=== PATIENT | female | born 1955 | race Caucasian/White ===

== ENCOUNTER 2018-08-12 16:04 | Inpatient (IN) | payer MEDICAID | END 2018-08-15 18:10 | disposition home or self-care (01) | LOC: ER 16:04 → ED HOLD 23:05 → ORTHO 4S 08-13 16:20 ==

== ENCOUNTER → 2018-08-18 | Emergency (ER) | payer MEDICAID ==
[~2018-08-18] VITALS: Ht 172.7 cm; Wt 43.6 kg
[~2018-08-18] MED LIST: ALBU18HF2 INH; ALBU2.5V13 NEB; AMYL1CAP52 PO; AMYL1CAP53 PO; ASPI-1071 PO; ATOR20TA PO; ATOR20TA66 PO; BUDE10.2 INH; BUPR75TA12 PO; CHOL100017 PO; DIPH25CA83 PO; GABA-534 PO; GUAI600T45 PO; HYDR-3686 PO; LORA10TA7 PO; METO-539 PO; NAPR-1115 PO; OMEP40CA37 PO; SERT50TA PO; TIOT4MIS3 INH; TRAM50TA2 PO; gabapentin 400mg capsule PO SCH; traMADol 50MG tablet PO ONE
[2018-08-18 09:45] VITALS: BP 123/74
--- NOTE | 2018-08-18 10:22 | NUR ---
Spoke with Sandra, Interim home health will be coming to patient at [facility] Bernadette will bring patient some oxygen She called [facility], not currently up and running. But she stated that they hope to be running around [address] del toro and special agent in charge mary.
--- NOTE | 2018-08-18 20:55 | NUR ---
GIVEN SACK LUNCH AND WATER
== END | disposition home or self-care (01) ==
LOC: ER 05:05
DX: R09.02 Hypoxemia (principal); J44.9 Chronic obstructive pulmonary disease, unspecified; G89.29 Other chronic pain; M10.9 Gout, unspecified; M06.9 Rheumatoid arthritis, unspecified; F12.90 Cannabis use, unspecified, uncomplicated; Z00.00 Encounter for general adult medical examination without abnormal findings; Z99.81 Dependence on supplemental oxygen; Z56.0 Unemployment, unspecified; Z79.82 Long term (current) use of aspirin; Z79.899 Other long term (current) drug therapy; Z88.4 Allergy status to anesthetic agent; Z90.89 Acquired absence of other organs; Z98.890 Other specified postprocedural states
CPT/HCPCS: 99284

== ENCOUNTER 2018-08-20 15:14 | Inpatient (IN) | payer MEDICAID ==
[~2018-08-20] VITALS: Ht 172.7 cm; Wt 45.0 kg
[~2018-08-20 15:14] MED LIST changes: -ATOR20TA PO; -gabapentin 400mg capsule PO SCH; -traMADol 50MG tablet PO ONE
[2018-08-20 19:26] LABS: BASOPHILS % (AUTO) 0.4 % (0-1); EOSINOPHILS # (AUTO) 0.1 X10'3 (0-0.9); HEMATOCRIT 40.1 % (35.0-45.0); HEMOGLOBIN 12.3 g/dl (12.0-16.0); LYMPHOCYTES # (AUTO) 0.7 X10'3 (1.1-4.8); LYMPHOCYTES % (AUTO) 8.6 % (21-51); MEAN CORPUSCULAR HEMOGLOBIN 30.5 PG (27.0-31.0); MEAN CORPUSCULAR HGB CONC 30.8 g/dL (33.0-36.5); MEAN CORPUSCULAR VOLUME 99.2 FL (78-98); MEAN PLATELET VOLUME 8.4 FL (7.4-10.4); MONOCYTES # (AUTO) 0.8 X10'3 (0-0.9); MONOCYTES % (AUTO) 10.4 % (2-12); NEUTROPHILS # (AUTO) 6.3 X10'3 (1.8-7.7); NEUTROPHILS % (AUTO) 79.6 % (42-75); PLATELET COUNT 253 X10'3 (140-440); RED BLOOD COUNT 4.04 X10'6 (4.20-5.60); RED CELL DISTRIBUTION WIDTH 12.6 % (11.5-14.5); WHITE BLOOD COUNT 7.9 X10'3 (4.5-11.0)
[2018-08-20 19:38] LABS: ALANINE AMINOTRANSFERASE 21 U/L (12-78); ALBUMIN 3.1 G/DL (3.4-5.0); ALBUMIN/GLOBULIN RATIO 0.9 (1.1-1.5); ALKALINE PHOSPHATASE 94 IU/L (46-116); ASPARTATE AMINO TRANSFERASE 18 U/L (10-37); BILIRUBIN,TOTAL 0.2 MG/DL (0.1-1.0); BLOOD UREA NITROGEN 12 MG/DL (7-18); BUN/CREATININE RATIO 26.7 (6.6-38.0); CALCIUM 8.8 MG/DL (8.5-10.1); CHLORIDE 96 MMOL/L (99-107); CREATININE 0.45 MG/DL (0.40-0.90); GLUCOSE 154 MG/DL (70-104); POTASSIUM 3.2 MMOL/L (3.5-5.1); SODIUM 142 MMOL/L (135-145); TOTAL PROTEIN 6.6 G/DL (6.4-8.2); TROPONIN I < 0.04 NG/ML (0.0-0.05); eGFR > 90 ML/MIN
[2018-08-20 19:51] LABS: ANION GAP 1 (8-16)
[2018-08-20 19:53] LABS: TOTAL CARBON DIOXIDE 45.2 MMOL/L (24-32)
[2018-08-20] MEDS ORDERED: ipratropium/albuterol 3ml nebule NEB ONE (20:00)
[2018-08-20 21:36] LABS: ABG BASE EXCESS 20.2 mmol/L (-2.0-3.0); ABG HCO3 51.1 mmol/L (22.0-26.0); ABG OXYGEN SATURATION 82.9 % (95-98); ABG PCO2 (T) 94.1 mmHg (32.0-45.0); ABG PH (T) 7.351 (7.350-7.450); ABG PO2 (T) 47.1 mmHg (83-108); ALLEN'S TEST Positive; FLOW 1 L/min; FMetHb 0.2 % (0.3-1.12); FO2Hb 81.9 % (94-100); PATIENT TEMPERATURE 36.6; RESPIRATORY RATE (OBSERVED) 16 b/min; TOTAL HEMOGLOBIN 13.3 G/dl (12.0-16.0)
[2018-08-20] MEDS ORDERED: ATOR20TA PO (23:06)
[2018-08-20] MEDS ORDERED: ASPI-1071 PO (23:06)
[2018-08-21 00:06] LABS: ABG BASE EXCESS 17.4 mmol/L (-2.0-3.0); ABG HCO3 45.3 mmol/L (22.0-26.0); ABG OXYGEN SATURATION 94.2 % (95-98); ABG PCO2 (T) 70.1 mmHg (32.0-45.0); ABG PO2 (T) 70.7 mmHg (83-108); ALLEN'S TEST Positive; FCOHb 0.9 % (0.5-1.5); FMetHb 0.1 % (0.3-1.12); FO2Hb 93.3 % (94-100); MINUTE VOLUME 14 L/min; PATIENT TEMPERATURE 37.3; RESPIRATORY RATE 20 b/min; RESPIRATORY RATE (OBSERVED) 24 b/min; TOTAL HEMOGLOBIN 13.5 G/dl (12.0-16.0)
[2018-08-21] MEDS ORDERED: acetaminophen 325mg tablet PO PRN ×2 (00:15→03:55)
[2018-08-21] MEDS ORDERED: ondansetron/PF 4mg/2ml inj IV PRN (00:15)
[2018-08-21] MEDS ORDERED: mag hydrox/Alum hydrox/simeth 30ml oral suspension PO PRN (00:15)
[2018-08-21] MEDS ORDERED: magnesium hydroxide 30ml (MOM) UD suspension PO PRN (00:15)
[2018-08-21] MEDS ORDERED: guaiFENesin ER 600mg tablet PO PRN (00:20)
[2018-08-21] MEDS ORDERED: albuterol 2.5 MG/3 ML nebule NEB PRN ×2 (00:20)
[2018-08-21] MEDS ORDERED: ipratropium 0.5 MG/2.5ML nebule IH SCH (02:00)
[2018-08-21] MEDS ORDERED: albuterol 2.5 MG/3 ML nebule NEB SCH (03:00)
[2018-08-21] MEDS: ipratropium/albuterol 3ml nebule NEB SCH ×4 (04:13→20:37)
[2018-08-21] MEDS ORDERED: non-formulary drug (Budesonide/Formoterol Fumarate (Symbicort 160-4.5 Mcg Inhaler) 2 PUFFS INH SCH (08:00)
[2018-08-21] MEDS ORDERED: non-formulary drug (Tiotropium Br/Olodaterol HCl (Stiolto Respimat Inhal Spray) 2 PUFFS) INH SCH (08:00)
[2018-08-21] MEDS: LIPASE/PROTEASE/AMYLASE 4,200 unit CAPSULE.DR PO SCH ×3 (08:42→19:43)
[2018-08-21] MEDS: aspirin 81mg tablet.DR PO SCH (08:42)
[2018-08-21] MEDS: pantoprazole 40mg Tablet.DR PO SCH (08:43)
[2018-08-21] MEDS: buPROPion 75mg tablet PO SCH (08:43)
[2018-08-21] MEDS: metoprolol succinate 25mg (24-HOUR) SR. Tablet PO SCH (08:44)
[2018-08-21] MEDS: heparin, porcine 5000 units/ml vial SQ SCH ×2 (08:45→19:43)
[2018-08-21] MEDS: budesonide 0.5mg/2ml UD nebule IH SCH ×2 (10:23→20:37)
[2018-08-21] MEDS ORDERED: naproxen sodium 220mg tablet PO PRN (16:20)
[2018-08-21] MEDS ORDERED: LIPASE PO SCH (18:00)
[2018-08-21] MEDS ORDERED: AMYLASE PO SCH (18:00)
[2018-08-21] MEDS ORDERED: PROTEASE PO SCH (18:00)
[2018-08-21] MEDS: traMADol 50MG tablet PO PRN (19:42)
[2018-08-21] MEDS: atorvastatin 20mg tablet PO SCH (21:10)
[2018-08-21] MEDS: sertraline 50mg tablet PO SCH (21:10)
[2018-08-21] MEDS: diphenhydrAMINE 25mg capsule PO PRN (21:11)
[2018-08-21] MEDS ORDERED: nicotine prolacrilex 4mg gum BC PRN (22:50)
[2018-08-21 23:00] VITALS: BP 108/81
[2018-08-21] MEDS ORDERED: NICOTINE POLACRILEX 2 MG LOZENGE MM PRN (23:12)
[2018-08-22] MEDS: gabapentin 400mg capsule PO SCH ×4 (00:12→23:25)
[2018-08-22] MEDS: traMADol 50MG tablet PO PRN ×2 (00:15→15:26)
[2018-08-22] MEDS: nicotine prolacrilex 2mg gum BC PRN ×2 (00:40→09:02)
[2018-08-22] MEDS: ipratropium/albuterol 3ml nebule NEB SCH ×4 (02:40→20:00)
[2018-08-22 03:00] VITALS: BP 137/80
[2018-08-22] MEDS: hydrOXYzine 25 MG tablet PO PRN ×2 (03:15→21:57)
[2018-08-22 06:00] VITALS: BP 118/77
[2018-08-22 07:03] LABS: BASOPHILS % (AUTO) 0.3 % (0-1); EOSINOPHILS % (AUTO) 0.5 % (0-6); HEMATOCRIT 38.1 % (35.0-45.0); HEMOGLOBIN 12.4 g/dl (12.0-16.0); LYMPHOCYTES # (AUTO) 1.4 X10'3 (1.1-4.8); LYMPHOCYTES % (AUTO) 16.5 % (21-51); MEAN CORPUSCULAR HEMOGLOBIN 31.7 PG (27.0-31.0); MEAN CORPUSCULAR HGB CONC 32.4 g/dL (33.0-36.5); MEAN CORPUSCULAR VOLUME 97.9 FL (78-98); MONOCYTES # (AUTO) 0.8 X10'3 (0-0.9); MONOCYTES % (AUTO) 9.1 % (2-12); NEUTROPHILS # (AUTO) 6.4 X10'3 (1.8-7.7); NEUTROPHILS % (AUTO) 73.6 % (42-75); PLATELET COUNT 291 X10'3 (140-440); RED CELL DISTRIBUTION WIDTH 12.3 % (11.5-14.5); WHITE BLOOD COUNT 8.6 X10'3 (4.5-11.0)
[2018-08-22 07:11] LABS: ALANINE AMINOTRANSFERASE 16 U/L (12-78); ALBUMIN 2.8 G/DL (3.4-5.0); ALBUMIN/GLOBULIN RATIO 0.8 (1.1-1.5); ALKALINE PHOSPHATASE 88 IU/L (46-116); ANION GAP 3 (8-16); ASPARTATE AMINO TRANSFERASE 15 U/L (10-37); BILIRUBIN,TOTAL 0.3 MG/DL (0.1-1.0); BLOOD UREA NITROGEN 14 MG/DL (7-18); BUN/CREATININE RATIO 29.2 (6.6-38.0); CALCIUM 8.8 MG/DL (8.5-10.1); CHLORIDE 97 MMOL/L (99-107); CREATININE 0.48 MG/DL (0.40-0.90); GLUCOSE 105 MG/DL (70-104); SODIUM 143 MMOL/L (135-145); TOTAL PROTEIN 6.2 G/DL (6.4-8.2); eGFR > 90 ML/MIN
[2018-08-22 07:15] LABS: POTASSIUM 2.9 MMOL/L (3.5-5.1); TOTAL CARBON DIOXIDE 42.8 MMOL/L (24-32)
--- NOTE | 2018-08-22 07:43 | NUR ---
Paged Dr. Aragon: PAGER ID: [phone] MESSAGE: Clara BLACKWOOD [phone]. RE: Gloria Sarkar 3028B. Critical Labs: Potasssium 2.9. CO2 42.8. Thank you.
[2018-08-22] MEDS: budesonide 0.5mg/2ml UD nebule IH SCH ×2 (08:00→20:01)
[2018-08-22] MEDS: LIPASE/PROTEASE/AMYLASE 4,200 unit CAPSULE.DR PO SCH ×3 (08:57→19:27)
[2018-08-22] MEDS: aspirin 81mg tablet.DR PO SCH (08:58)
[2018-08-22] MEDS: buPROPion 75mg tablet PO SCH (08:58)
[2018-08-22] MEDS: vitamin D (cholecalciferol) 1,000 unit tablet PO SCH (08:58)
[2018-08-22] MEDS: loratadine 10mg tablet PO SCH (08:59)
[2018-08-22] MEDS: pantoprazole 40mg Tablet.DR PO SCH (08:59)
[2018-08-22] MEDS: metoprolol succinate 25mg (24-HOUR) SR. Tablet PO SCH (09:01)
[2018-08-22] MEDS: heparin, porcine 5000 units/ml vial SQ SCH ×2 (09:03→19:28)
[2018-08-22] MEDS ORDERED: potassium Cl 40MEQ/NS 500ml 500 ML IV PRN ×2 (10:45)
[2018-08-22] MEDS ORDERED: potassium Cl 20 mEq SR tablet PO PRN (10:45)
[2018-08-22 11:00] VITALS: BP 125/78
[2018-08-22] MEDS: K and/or MAG REPLACEMENT MC SCH (11:14)
[2018-08-22] MEDS: potassium Cl 20 mEq SR tablet PO PRN ×3 (11:14→20:34)
[2018-08-22 15:00] VITALS: BP 100/57
--- NOTE | 2018-08-22 18:29 | NUR ---
Patient in room PCU 3028. I have received report from murphy trevizo and had the opportunity to ask questions and assume patient care.
[2018-08-22 19:00] VITALS: BP 114/66
[2018-08-22] MEDS ORDERED: acetaminophen 325mg tablet PO PRN ×2 (20:19→20:20)
[2018-08-22] MEDS: atorvastatin 20mg tablet PO SCH (20:34)
[2018-08-22] MEDS: diphenhydrAMINE 25mg capsule PO PRN (20:35)
[2018-08-22] MEDS: sertraline 50mg tablet PO SCH (20:35)
[2018-08-22 23:00] VITALS: BP 118/69
[2018-08-23] MEDS: ipratropium/albuterol 3ml nebule NEB SCH ×4 (02:27→20:56)
[2018-08-23 03:00] VITALS: BP 93/63
[2018-08-23 05:29] LABS: BASOPHILS # (AUTO) 0.1 X10'3 (0-0.2); BASOPHILS % (AUTO) 1.1 % (0-1); EOSINOPHILS # (AUTO) 0.1 X10'3 (0-0.9); EOSINOPHILS % (AUTO) 1.5 % (0-6); HEMATOCRIT 38.7 % (35.0-45.0); HEMOGLOBIN 12.6 g/dl (12.0-16.0); LYMPHOCYTES # (AUTO) 1.7 X10'3 (1.1-4.8); LYMPHOCYTES % (AUTO) 23.2 % (21-51); MEAN CORPUSCULAR HEMOGLOBIN 32.2 PG (27.0-31.0); MEAN CORPUSCULAR HGB CONC 32.5 g/dL (33.0-36.5); MEAN PLATELET VOLUME 8.3 FL (7.4-10.4); MONOCYTES # (AUTO) 0.7 X10'3 (0-0.9); MONOCYTES % (AUTO) 9.6 % (2-12); NEUTROPHILS # (AUTO) 4.8 X10'3 (1.8-7.7); NEUTROPHILS % (AUTO) 64.6 % (42-75); PLATELET COUNT 293 X10'3 (140-440); RED BLOOD COUNT 3.91 X10'6 (4.20-5.60); RED CELL DISTRIBUTION WIDTH 12.9 % (11.5-14.5); WHITE BLOOD COUNT 7.4 X10'3 (4.5-11.0)
[2018-08-23 05:31] LABS: ALANINE AMINOTRANSFERASE 17 U/L (12-78); ALBUMIN 2.8 G/DL (3.4-5.0); ALBUMIN/GLOBULIN RATIO 0.8 (1.1-1.5); ALKALINE PHOSPHATASE 89 IU/L (46-116); ANION GAP 4 (8-16); ASPARTATE AMINO TRANSFERASE 18 U/L (10-37); BILIRUBIN,TOTAL 0.2 MG/DL (0.1-1.0); BLOOD UREA NITROGEN 16 MG/DL (7-18); CALCIUM 8.9 MG/DL (8.5-10.1); CHLORIDE 103 MMOL/L (99-107); CREATININE 0.47 MG/DL (0.40-0.90); GLUCOSE 105 MG/DL (70-104); POTASSIUM 4.8 MMOL/L (3.5-5.1); SODIUM 144 MMOL/L (135-145); TOTAL CARBON DIOXIDE 37.5 MMOL/L (24-32); TOTAL PROTEIN 6.4 G/DL (6.4-8.2); eGFR > 90 ML/MIN
[2018-08-23 06:00] VITALS: BP 125/72
--- NOTE | 2018-08-23 06:19 | NUR ---
Problems reprioritized. Patient report given, questions answered & plan of care reviewed with BRANDYN NINO. PATIENT AWAKE IN NO DISTRESS. V/S BEING TAKEN
--- NOTE | 2018-08-23 06:30 | NUR ---
Patient in room PCU 3028. I have received report from Kirti NINO and had the opportunity to ask questions and assume patient care.
[2018-08-23] MEDS: budesonide 0.5mg/2ml UD nebule IH SCH ×2 (07:41→20:56)
[2018-08-23] MEDS: K and/or MAG REPLACEMENT MC SCH (07:42)
[2018-08-23] MEDS: LIPASE/PROTEASE/AMYLASE 4,200 unit CAPSULE.DR PO SCH ×3 (07:52→19:18)
[2018-08-23] MEDS: buPROPion 75mg tablet PO SCH (07:52)
[2018-08-23] MEDS: aspirin 81mg tablet.DR PO SCH (07:52)
[2018-08-23] MEDS: gabapentin 400mg capsule PO SCH ×3 (07:52→23:07)
[2018-08-23] MEDS: loratadine 10mg tablet PO SCH (07:53)
[2018-08-23] MEDS: vitamin D (cholecalciferol) 1,000 unit tablet PO SCH (07:53)
[2018-08-23] MEDS: pantoprazole 40mg Tablet.DR PO SCH (07:53)
[2018-08-23] MEDS: metoprolol succinate 25mg (24-HOUR) SR. Tablet PO SCH (07:53)
[2018-08-23] MEDS: traMADol 50MG tablet PO PRN ×3 (08:00→20:37)
[2018-08-23] MEDS: nicotine prolacrilex 2mg gum BC PRN (08:01)
[2018-08-23] MEDS: heparin, porcine 5000 units/ml vial SQ SCH ×2 (08:01→19:18)
[2018-08-23] MEDS ORDERED: DOXYCYCLINE 100MG CAPSULE PO STA (10:09)
[2018-08-23] MEDS: predniSONE 20 mg tablet PO SCH (10:40)
[2018-08-23 11:00] VITALS: BP 96/71
[2018-08-23 15:00] VITALS: BP 134/93
[2018-08-23] MEDS: DOXYCYCLINE 100MG CAPSULE PO SCH (16:34)
--- NOTE | 2018-08-23 17:40 | NUR ---
Student documentation: I have reviewed and agree with all interventions, assessments performed and documented by Janie SOLARES. Student Medication Administration: For this medication-pass time frame, all medication were reviewed, dispensed, administered and documented per hospital policy by Janie SOLARES.
--- NOTE | 2018-08-23 18:15 | NUR ---
Patient in room PCU 3028. I have received report from murphy trevizo and had the opportunity to ask questions and assume patient care. patient eating dinner in no distress
[2018-08-23 18:50] VITALS: BP 124/75
[2018-08-23] MEDS: atorvastatin 20mg tablet PO SCH (20:36)
[2018-08-23] MEDS: sertraline 50mg tablet PO SCH (20:36)
[2018-08-23 23:00] VITALS: BP 115/78
[2018-08-24] MEDS: hydrOXYzine 25 MG tablet PO PRN ×2 (02:50→20:40)
[2018-08-24 03:00] VITALS: BP 111/73
[2018-08-24] MEDS: ipratropium/albuterol 3ml nebule NEB SCH ×4 (03:01→20:46)
--- NOTE | 2018-08-24 03:28 | NUR ---
NURSE ENTERED ROOM AND FOUND PATIENT SMOKING SOME SORT OF DEVICE. PATIENT QUICKLY TRIED TO HIDE THE FACT THAT SHE WAS SMOKING IN THE ROOM AND REFUSED TO HAND OVER THE DEVICE TO NURSE. NURSE LEFT ROOM TO CALL SECURITY TO HELP CONFISCATE DEVICE. WHEN SECURITY CAME TO FLOOR AND ASKED PATIENT WHERE DEVICE WAS SHE REFUSED TO TELL NURSE AND OFFICERS WHERE THE DEVICE WAS AND WAS EXPERIENCING A PANIC ATTACK. PATIENT WAS GIVEN ATARAX FOR ANXIETY. AFTER EXPLAINING TO PATIENT THE RISKS OF SMOKING IN THE HOSPITAL (FIRE HAZARD) PATIENT STILL REFUSED TO HAND OVER THE DEVICE EXPLAINING WHEN SHE CAME IN HER WEED, STORAGE KEYS AND PIPES WERE "TAKEN AWAY FROM ME AND DESTROYED". NURSE EXPLAINED THIS WOULD NOT HAPPEN WITH HER DEVICE AND SHE WOULD GET IT BACK UPON D/C. PATIENT ALLOWED NURSE AND OFFICERS TO SEARCH BED/SHEETS BUT NO DEVICE WAS FOUND. PATIENT REFUSED TO GET UP OUT OF BED. PATIENT EXPLAINED "I DONT KNOW WHERE IT IS" DR GRUBER WAS CONTACTED ABOUT THE FACT THAT PATIENT MAY HAVE POTENTIALLY SWALLOWED THE DEVICE. DR GRUBER ORDERED A ABDOMINAL AND CHEST XRAY. RADIOLOGY CAME TO ROOM AND TOOK IMAGES BUT UPON TAKING XRAY BOARD OUT FROM UNDER PATIENT THE DEVICE FELL OUT OF THE PATIENT'S BED. SECURITY CALLED ABOUT DEVICE BEING LOCATED AND STATED THEY DO NOT STORE CONTRABAND AND FOR NURSE TO HOLD ONTO DEVICE AT NURSING STATION IN PATIENT SPECIFIC BAG. CHARGE NURSE ELSA NOTIFIED, AT THIS TIME DEVICE IS IN PATIENT BELONGINGS BAG IN CHART. WILL PASS ONTO DAY SHIFT. Addendum: 08/24/18 at 0351 by Adam Shepard RN DR GRUBER NOTIFIED ABOUT NURSES FINDING SMOKING DEVICE, WILL CONTINUE TO MONITOR PATIENT
[2018-08-24] MEDS: nicotine prolacrilex 2mg gum BC PRN ×4 (04:36→20:40)
[2018-08-24 05:23] LABS: ALANINE AMINOTRANSFERASE 20 U/L (12-78); ALBUMIN 2.8 G/DL (3.4-5.0); ALBUMIN/GLOBULIN RATIO 0.8 (1.1-1.5); ALKALINE PHOSPHATASE 91 IU/L (46-116); ANION GAP 6 (8-16); ASPARTATE AMINO TRANSFERASE 25 U/L (10-37); BILIRUBIN,TOTAL 0.1 MG/DL (0.1-1.0); BLOOD UREA NITROGEN 17 MG/DL (7-18); BUN/CREATININE RATIO 28.3 (6.6-38.0); CALCIUM 9.2 MG/DL (8.5-10.1); CHLORIDE 96 MMOL/L (99-107); GLUCOSE 212 MG/DL (70-104); POTASSIUM 3.6 MMOL/L (3.5-5.1); SODIUM 138 MMOL/L (135-145); TOTAL CARBON DIOXIDE 36.5 MMOL/L (24-32); TOTAL PROTEIN 6.5 G/DL (6.4-8.2); eGFR > 90 ML/MIN
[2018-08-24 05:33] LABS: HEMOGLOBIN 12.2 g/dl (12.0-16.0); LYMPHOCYTES # (AUTO) 1.3 X10'3 (1.1-4.8); MEAN CORPUSCULAR HGB CONC 32.1 g/dL (33.0-36.5); MEAN CORPUSCULAR VOLUME 96.6 FL (78-98); MEAN PLATELET VOLUME 8.7 FL (7.4-10.4); MONOCYTES # (AUTO) 0.5 X10'3 (0-0.9); PLATELET COUNT 303 X10'3 (140-440); RED BLOOD COUNT 3.94 X10'6 (4.20-5.60); RED CELL DISTRIBUTION WIDTH 13.2 % (11.5-14.5); WHITE BLOOD COUNT 7.9 X10'3 (4.5-11.0)
[2018-08-24 05:39] LABS: BASOPHILS % (AUTO) 0.3 % (0-1); EOSINOPHILS % (AUTO) 0.3 % (0-6); MONOCYTES % (AUTO) 6.3 % (2-12); NEUTROPHILS % (AUTO) 76.1 % (42-75)
[2018-08-24 06:00] VITALS: BP 120/68
--- NOTE | 2018-08-24 06:13 | NUR ---
Problems reprioritized. Patient report given, questions answered & plan of care reviewed with BRANDYN NINO. PATIENT ASLEEP IN NO DISTRESS. BED ALARM ON
--- NOTE | 2018-08-24 06:30 | NUR ---
Patient in room PCU 3028. I have received report from Kirti NINO and had the opportunity to ask questions and assume patient care.
--- NOTE | 2018-08-24 06:39 | NUR ---
Patient in room PCU 3028B. I have received report from Kirti NINO and had the opportunity to ask questions and assume patient care. Pt is sleeping in bed and in no acute distress.
[2018-08-24] MEDS: heparin, porcine 5000 units/ml vial SQ SCH ×2 (07:53→20:29)
[2018-08-24] MEDS: LIPASE/PROTEASE/AMYLASE 4,200 unit CAPSULE.DR PO SCH ×3 (07:53→20:28)
[2018-08-24] MEDS: metoprolol succinate 25mg (24-HOUR) SR. Tablet PO SCH (07:53)
[2018-08-24] MEDS: loratadine 10mg tablet PO SCH (07:53)
[2018-08-24] MEDS: vitamin D (cholecalciferol) 1,000 unit tablet PO SCH (07:53)
[2018-08-24] MEDS: pantoprazole 40mg Tablet.DR PO SCH (07:53)
[2018-08-24] MEDS: gabapentin 400mg capsule PO SCH ×3 (07:54→23:21)
[2018-08-24] MEDS: aspirin 81mg tablet.DR PO SCH (07:54)
[2018-08-24] MEDS: predniSONE 20 mg tablet PO SCH (07:54)
[2018-08-24] MEDS: buPROPion 75mg tablet PO SCH (07:54)
[2018-08-24] MEDS: DOXYCYCLINE 100MG CAPSULE PO SCH ×2 (07:54→16:36)
[2018-08-24] MEDS: K and/or MAG REPLACEMENT MC SCH (08:00)
[2018-08-24] MEDS: traMADol 50MG tablet PO PRN ×3 (08:49→23:21)
[2018-08-24] MEDS: budesonide 0.5mg/2ml UD nebule IH SCH ×2 (08:52→20:46)
[2018-08-24] MEDS: fluticasone nasal spray 16GM bottle NS SCH ×2 (10:57→20:29)
[2018-08-24 11:00] VITALS: BP 125/103
[2018-08-24 15:00] VITALS: BP 111/68
--- NOTE | 2018-08-24 18:01 | NUR ---
Orientee documentation: I have reviewed and agree with all interventions, assessments performed and documented by Liliam NINO. Orientee Medication Administration: For this medication-pass time frame, all medication were reviewed, dispensed, administered and documented per hospital policy by Liliam NINO.
--- NOTE | 2018-08-24 18:17 | NUR ---
Problems reprioritized. Patient report given, questions answered & plan of care reviewed with Kirti NINO. Pt is resting in bed and in no distress.
--- NOTE | 2018-08-24 18:31 | NUR ---
Patient in room PCU 3028. I have received report from murphy trevizo and had the opportunity to ask questions and assume patient care. patient eating dinner in no distress. bed alarm on
[2018-08-24 19:00] VITALS: BP 105/76
[2018-08-24] MEDS: atorvastatin 20mg tablet PO SCH (20:29)
[2018-08-24] MEDS: lactobacillus rhamnosus 10,000 MMU CELLS/CAPSULE PO SCH (20:29)
[2018-08-24] MEDS: sertraline 50mg tablet PO SCH (20:29)
[2018-08-24 23:00] VITALS: BP 108/71
--- NOTE | 2018-08-24 23:24 | NUR ---
PATIENT INSISTING ON WEARING DIAPER/DEPENS. NURSE EDUCATING PATIENT ON RISKS OF WEARING THEM LIKE SKIN BREAKDOWN BUT PATIENT IS INSISTING ON KEEPING THEM ON. NURSE ENCOURAGING PATIENT TO TURN Q2H. PATIENT WAS ASKED IF SHE WAS WET/NEEDED DIAPER CHANGE AND SHE REFUSED AT THIS TIME SAYING "WHO WOULD WANT TO SIT IN WET DIAPERS?" WILL CONTINUE TO MONITOR
[2018-08-25 03:00] VITALS: BP 103/58
[2018-08-25] MEDS: ipratropium/albuterol 3ml nebule NEB SCH ×4 (03:06→20:30)
[2018-08-25 03:41] LABS: BASOPHILS # (AUTO) 0.1 X10'3 (0-0.2); BASOPHILS % (AUTO) 0.5 % (0-1); EOSINOPHILS % (AUTO) 0.4 % (0-6); HEMATOCRIT 38.2 % (35.0-45.0); HEMOGLOBIN 12.3 g/dl (12.0-16.0); LYMPHOCYTES # (AUTO) 1.7 X10'3 (1.1-4.8); LYMPHOCYTES % (AUTO) 15.8 % (21-51); MEAN CORPUSCULAR HEMOGLOBIN 31.1 PG (27.0-31.0); MEAN CORPUSCULAR HGB CONC 32.3 g/dL (33.0-36.5); MEAN CORPUSCULAR VOLUME 96.2 FL (78-98); MEAN PLATELET VOLUME 8.4 FL (7.4-10.4); MONOCYTES # (AUTO) 0.6 X10'3 (0-0.9); MONOCYTES % (AUTO) 5.6 % (2-12); NEUTROPHILS # (AUTO) 8.3 X10'3 (1.8-7.7); NEUTROPHILS % (AUTO) 77.7 % (42-75); PLATELET COUNT 318 X10'3 (140-440); RED BLOOD COUNT 3.97 X10'6 (4.20-5.60); RED CELL DISTRIBUTION WIDTH 13.2 % (11.5-14.5); WHITE BLOOD COUNT 10.7 X10'3 (4.5-11.0)
[2018-08-25 03:48] LABS: ALANINE AMINOTRANSFERASE 24 U/L (12-78); ALBUMIN 2.9 G/DL (3.4-5.0); ALBUMIN/GLOBULIN RATIO 0.8 (1.1-1.5); ALKALINE PHOSPHATASE 103 IU/L (46-116); ANION GAP 4 (8-16); ASPARTATE AMINO TRANSFERASE 21 U/L (10-37); BILIRUBIN,TOTAL 0.2 MG/DL (0.1-1.0); BLOOD UREA NITROGEN 19 MG/DL (7-18); BUN/CREATININE RATIO 30.6 (6.6-38.0); CALCIUM 9.2 MG/DL (8.5-10.1); CHLORIDE 99 MMOL/L (99-107); CREATININE 0.62 MG/DL (0.40-0.90); GLUCOSE 117 MG/DL (70-104); POTASSIUM 3.7 MMOL/L (3.5-5.1); SODIUM 141 MMOL/L (135-145); TOTAL CARBON DIOXIDE 38.4 MMOL/L (24-32); TOTAL PROTEIN 6.4 G/DL (6.4-8.2); eGFR > 90 ML/MIN
[2018-08-25 06:00] VITALS: BP 110/66
--- NOTE | 2018-08-25 06:18 | NUR ---
Problems reprioritized. Patient report given, questions answered & plan of care reviewed with fanny trevizo. patient asleep in no distress. bed alarm on
--- NOTE | 2018-08-25 06:57 | NUR ---
Patient in room U 3028B. I have received report from Kirti NINO and had the opportunity to ask questions and assume patient care. Pt is sleeping in bed.
[2018-08-25] MEDS: budesonide 0.5mg/2ml UD nebule IH SCH ×2 (07:02→20:30)
[2018-08-25] MEDS: traMADol 50MG tablet PO PRN ×3 (07:03→21:34)
[2018-08-25] MEDS: heparin, porcine 5000 units/ml vial SQ SCH ×2 (07:56→21:30)
[2018-08-25] MEDS: DOXYCYCLINE 100MG CAPSULE PO SCH ×2 (07:57→16:48)
[2018-08-25] MEDS: lactobacillus rhamnosus 10,000 MMU CELLS/CAPSULE PO SCH ×2 (07:57→21:30)
[2018-08-25] MEDS: pantoprazole 40mg Tablet.DR PO SCH (07:57)
[2018-08-25] MEDS: buPROPion 75mg tablet PO SCH (07:57)
[2018-08-25] MEDS: aspirin 81mg tablet.DR PO SCH (07:57)
[2018-08-25] MEDS: predniSONE 20 mg tablet PO SCH (07:57)
[2018-08-25] MEDS: loratadine 10mg tablet PO SCH (07:57)
[2018-08-25] MEDS: LIPASE/PROTEASE/AMYLASE 4,200 unit CAPSULE.DR PO SCH ×3 (07:58→18:03)
[2018-08-25] MEDS: vitamin D (cholecalciferol) 1,000 unit tablet PO SCH (07:58)
[2018-08-25] MEDS: nicotine prolacrilex 2mg gum BC PRN ×2 (07:58→23:00)
[2018-08-25] MEDS: fluticasone nasal spray 16GM bottle NS SCH ×2 (07:58→21:30)
[2018-08-25] MEDS: gabapentin 400mg capsule PO SCH ×3 (07:59→23:00)
[2018-08-25] MEDS: metoprolol succinate 25mg (24-HOUR) SR. Tablet PO SCH (08:00)
[2018-08-25] MEDS: K and/or MAG REPLACEMENT MC SCH (08:00)
[2018-08-25 11:00] VITALS: BP 113/63
[2018-08-25 15:00] VITALS: BP 117/35
--- NOTE | 2018-08-25 17:36 | NUR ---
Orientee documentation: I have reviewed and agree with all interventions, assessments performed and documented by MICA Ricketts.
--- NOTE | 2018-08-25 17:38 | NUR ---
Orientee Medication Administration: For this medication-pass time frame, all medication were reviewed, dispensed, administered and documented per hospital policy by MICA Ricketts.
--- NOTE | 2018-08-25 18:19 | NUR ---
Problems reprioritized. Patient report given, questions answered & plan of care reviewed with Karma NINO. Pt is resting in bed and in no acute distress.
[2018-08-25 19:00] VITALS: BP 158/94
[2018-08-25] MEDS: sertraline 50mg tablet PO SCH (21:30)
[2018-08-25] MEDS: atorvastatin 20mg tablet PO SCH (21:30)
[2018-08-25] MEDS: diphenhydrAMINE 25mg capsule PO PRN (21:33)
[2018-08-25 23:00] VITALS: BP 120/68
[2018-08-26] MEDS: hydrOXYzine 25 MG tablet PO PRN (02:02)
[2018-08-26] MEDS: ipratropium/albuterol 3ml nebule NEB SCH ×4 (02:40→19:49)
[2018-08-26 03:00] VITALS: BP 121/77
[2018-08-26] MEDS: traMADol 50MG tablet PO PRN ×4 (04:33→23:35)
[2018-08-26 05:08] LABS: BASOPHILS % (AUTO) 0.3 % (0-1); EOSINOPHILS # (AUTO) 0.1 X10'3 (0-0.9); EOSINOPHILS % (AUTO) 0.7 % (0-6); HEMATOCRIT 36.8 % (35.0-45.0); LYMPHOCYTES # (AUTO) 2.3 X10'3 (1.1-4.8); LYMPHOCYTES % (AUTO) 23.4 % (21-51); MEAN CORPUSCULAR HEMOGLOBIN 31.5 PG (27.0-31.0); MEAN CORPUSCULAR HGB CONC 32.7 g/dL (33.0-36.5); MEAN CORPUSCULAR VOLUME 96.5 FL (78-98); MEAN PLATELET VOLUME 8.2 FL (7.4-10.4); MONOCYTES # (AUTO) 0.8 X10'3 (0-0.9); MONOCYTES % (AUTO) 7.8 % (2-12); NEUTROPHILS # (AUTO) 6.8 X10'3 (1.8-7.7); NEUTROPHILS % (AUTO) 67.8 % (42-75); PLATELET COUNT 318 X10'3 (140-440); RED BLOOD COUNT 3.82 X10'6 (4.20-5.60); RED CELL DISTRIBUTION WIDTH 13.5 % (11.5-14.5)
[2018-08-26 05:45] LABS: ALANINE AMINOTRANSFERASE 26 U/L (12-78); ALBUMIN/GLOBULIN RATIO 0.9 (1.1-1.5); ALKALINE PHOSPHATASE 97 IU/L (46-116); ANION GAP 4 (8-16); ASPARTATE AMINO TRANSFERASE 25 U/L (10-37); BILIRUBIN,TOTAL 0.2 MG/DL (0.1-1.0); BLOOD UREA NITROGEN 17 MG/DL (7-18); BUN/CREATININE RATIO 28.3 (6.6-38.0); CALCIUM 9.3 MG/DL (8.5-10.1); CHLORIDE 99 MMOL/L (99-107); GLUCOSE 95 MG/DL (70-104); POTASSIUM 3.6 MMOL/L (3.5-5.1); SODIUM 142 MMOL/L (135-145); TOTAL CARBON DIOXIDE 39.1 MMOL/L (24-32); TOTAL PROTEIN 6.3 G/DL (6.4-8.2); eGFR > 90 ML/MIN
[2018-08-26 06:00] VITALS: BP 127/81
--- NOTE | 2018-08-26 06:02 | NUR ---
Problems reprioritized. Patient report given, questions answered & plan of care reviewed with Smith NINO.
--- NOTE | 2018-08-26 06:10 | NUR ---
Patient in room PCU 3028. I have received report from MICA Parada and had the opportunity to ask questions and assume patient care.
[2018-08-26] MEDS: budesonide 0.5mg/2ml UD nebule IH SCH ×2 (07:43→19:49)
[2018-08-26] MEDS: K and/or MAG REPLACEMENT MC SCH (08:00)
[2018-08-26] MEDS: loratadine 10mg tablet PO SCH (08:23)
[2018-08-26] MEDS: LIPASE/PROTEASE/AMYLASE 4,200 unit CAPSULE.DR PO SCH ×3 (08:23→17:44)
[2018-08-26] MEDS: vitamin D (cholecalciferol) 1,000 unit tablet PO SCH (08:23)
[2018-08-26] MEDS: lactobacillus rhamnosus 10,000 MMU CELLS/CAPSULE PO SCH ×2 (08:24→21:04)
[2018-08-26] MEDS: heparin, porcine 5000 units/ml vial SQ SCH ×2 (08:24→21:05)
[2018-08-26] MEDS: metoprolol succinate 25mg (24-HOUR) SR. Tablet PO SCH (08:25)
[2018-08-26] MEDS: aspirin 81mg tablet.DR PO SCH (08:25)
[2018-08-26] MEDS: predniSONE 20 mg tablet PO SCH (08:25)
[2018-08-26] MEDS: gabapentin 400mg capsule PO SCH ×3 (08:25→23:34)
[2018-08-26] MEDS: pantoprazole 40mg Tablet.DR PO SCH (08:25)
[2018-08-26] MEDS: buPROPion 75mg tablet PO SCH (08:25)
[2018-08-26] MEDS: DOXYCYCLINE 100MG CAPSULE PO SCH ×2 (08:25→17:22)
[2018-08-26] MEDS: fluticasone nasal spray 16GM bottle NS SCH ×2 (08:26→21:04)
--- NOTE | 2018-08-26 09:50 | NUR ---
Initial: Pt admit with hypercarbic respiratory failure and COPD exacerbation. Per MD progress notes resp failure improving and pt on breathing tx and steroids for COPD exacerbation with improving SOB. Noted that patient's current wt is classified as underweight, however this appears stable with pt with chronically low wt per documented wt from previous visits. Pt currently on a mech soft grind all diet d/t no dentures per diet order with documented PO intake 100% throughout LOS meeting nutrient needs. LBM 08/24. No edema or wounds. No nutrition diagnosis at this time. Will continue to follow. Recommendations: 1) Continue with mech soft grind all diet 2) Wt per rx Addendum: 08/26/18 at [address] Amended: Links added.
--- NOTE | 2018-08-26 09:51 | NUR ---
Student Medication Administration: For this medication-pass time frame, all medication were reviewed, dispensed, administered and documented per hospital policy by SN Mindy.
[2018-08-26 11:57] VITALS: BP 128/85
[2018-08-26 15:00] VITALS: BP 111/61
--- NOTE | 2018-08-26 18:08 | NUR ---
Problems reprioritized. Patient report given, questions answered & plan of care reviewed with MICA Parada.
[2018-08-26 18:30] VITALS: BP 118/72
[2018-08-26] MEDS: sertraline 50mg tablet PO SCH (21:04)
[2018-08-26] MEDS: atorvastatin 20mg tablet PO SCH (21:04)
[2018-08-26 22:00] VITALS: BP 111/79
[2018-08-27] MEDS: nicotine prolacrilex 2mg gum BC PRN ×3 (00:32→20:48)
[2018-08-27] MEDS: ipratropium/albuterol 3ml nebule NEB SCH ×4 (02:27→20:03)
[2018-08-27 02:30] VITALS: BP 114/63
[2018-08-27] MEDS: diphenhydrAMINE 25mg capsule PO PRN (02:51)
--- NOTE | 2018-08-27 05:16 | NUR ---
Student Medication Administration: For this medication-pass time frame, all medication were reviewed, dispensed, administered and documented per hospital policy by Dorothy LENZ. Student documentation: I have reviewed and agree with all interventions, assessments performed and documented by Dorothy LENZ.
--- NOTE | 2018-08-27 05:59 | NUR ---
Problems reprioritized. Patient report given, questions answered & plan of care reviewed with Smith NINO.
[2018-08-27 06:00] VITALS: BP 123/72
--- NOTE | 2018-08-27 06:14 | NUR ---
Patient in room PCU 3028. I have received report from MICA Parada and had the opportunity to ask questions and assume patient care.
[2018-08-27] MEDS: K and/or MAG REPLACEMENT MC SCH (07:03)
[2018-08-27] MEDS: hydrOXYzine 25 MG tablet PO PRN (07:07)
[2018-08-27] MEDS: traMADol 50MG tablet PO PRN ×3 (07:08→18:48)
[2018-08-27] MEDS: vitamin D (cholecalciferol) 1,000 unit tablet PO SCH (07:09)
[2018-08-27] MEDS: pantoprazole 40mg Tablet.DR PO SCH (07:09)
[2018-08-27] MEDS: metoprolol succinate 25mg (24-HOUR) SR. Tablet PO SCH (07:09)
[2018-08-27] MEDS: LIPASE/PROTEASE/AMYLASE 4,200 unit CAPSULE.DR PO SCH ×3 (07:09→17:04)
[2018-08-27] MEDS: buPROPion 75mg tablet PO SCH (07:09)
[2018-08-27] MEDS: predniSONE 20 mg tablet PO SCH (07:09)
[2018-08-27] MEDS: loratadine 10mg tablet PO SCH (07:09)
[2018-08-27] MEDS: lactobacillus rhamnosus 10,000 MMU CELLS/CAPSULE PO SCH ×2 (07:09→20:48)
[2018-08-27] MEDS: gabapentin 400mg capsule PO SCH ×2 (07:09→16:41)
[2018-08-27] MEDS: heparin, porcine 5000 units/ml vial SQ SCH ×2 (07:10→20:49)
[2018-08-27] MEDS: aspirin 81mg tablet.DR PO SCH (07:10)
[2018-08-27] MEDS: DOXYCYCLINE 100MG CAPSULE PO SCH ×2 (08:09→16:41)
[2018-08-27] MEDS: fluticasone nasal spray 16GM bottle NS SCH ×2 (08:10→20:48)
[2018-08-27] MEDS: budesonide 0.5mg/2ml UD nebule IH SCH ×2 (08:31→20:03)
[2018-08-27 11:00] VITALS: BP 119/71
[2018-08-27 15:00] VITALS: BP 111/69
--- NOTE | 2018-08-27 18:10 | NUR ---
Problems reprioritized. Patient report given, questions answered & plan of care reviewed with MICA Parada.
[2018-08-27 18:30] VITALS: BP 122/69
[2018-08-27] MEDS: sertraline 50mg tablet PO SCH (20:48)
[2018-08-27] MEDS: atorvastatin 20mg tablet PO SCH (20:48)
[2018-08-27 22:47] VITALS: BP 101/71
[2018-08-28] MEDS: traMADol 50MG tablet PO PRN ×3 (00:49→15:01)
[2018-08-28] MEDS: gabapentin 400mg capsule PO SCH ×2 (00:49→07:35)
[2018-08-28 02:15] VITALS: BP 124/73
[2018-08-28] MEDS: ipratropium/albuterol 3ml nebule NEB SCH ×2 (03:04→08:25)
[2018-08-28 06:00] VITALS: BP 106/75
--- NOTE | 2018-08-28 06:10 | NUR ---
Problems reprioritized. Patient report given, questions answered & plan of care reviewed with Annette NINO.
[2018-08-28] MEDS: LIPASE/PROTEASE/AMYLASE 4,200 unit CAPSULE.DR PO SCH ×2 (07:35→12:32)
[2018-08-28] MEDS: loratadine 10mg tablet PO SCH (07:35)
[2018-08-28] MEDS: lactobacillus rhamnosus 10,000 MMU CELLS/CAPSULE PO SCH (07:35)
[2018-08-28] MEDS: predniSONE 20 mg tablet PO SCH (07:35)
[2018-08-28] MEDS: aspirin 81mg tablet.DR PO SCH (07:35)
[2018-08-28] MEDS: buPROPion 75mg tablet PO SCH (07:35)
[2018-08-28] MEDS: metoprolol succinate 25mg (24-HOUR) SR. Tablet PO SCH (07:35)
[2018-08-28] MEDS: vitamin D (cholecalciferol) 1,000 unit tablet PO SCH (07:35)
[2018-08-28] MEDS: pantoprazole 40mg Tablet.DR PO SCH (07:35)
[2018-08-28] MEDS: heparin, porcine 5000 units/ml vial SQ SCH (07:36)
[2018-08-28] MEDS: fluticasone nasal spray 16GM bottle NS SCH (07:36)
[2018-08-28] MEDS: K and/or MAG REPLACEMENT MC SCH (08:00)
[2018-08-28] MEDS: DOXYCYCLINE 100MG CAPSULE PO SCH (08:09)
[2018-08-28] MEDS: budesonide 0.5mg/2ml UD nebule IH SCH (08:25)
[2018-08-28] MEDS ORDERED: PRED10TA23 PO (10:13)
[2018-08-28] MEDS ORDERED: DOXY100C2 PO (10:13)
[2018-08-28 11:00] VITALS: BP 105/66
--- NOTE | 2018-08-28 15:51 | NUR ---
Patient stable and appropriate for discharge home to [facility]. All belongings taken from room. IV removed, monitor tech removed. Discharge instructions given. Patient had opportunity to ask questions. New prescriptions called into [facility] on [address] where her son is picking them up and bringing them to her.
== END 2018-08-28 15:30 | disposition home health service (06) | DRG 140 ==
LOC: ER 15:15 → ED HOLD 08-21 00:13 → PCU 3S 08-21 21:59
PROVIDERS: ADMIT Internal Medicine; ATTEND Family Medicine
PROC: 5A09357 Assistance with Respiratory Ventilation, Less than 24 Consecutive Hours, Continuous Positive Airway Pressure (ICD-10-PCS; principal; 2018-08-20)
DX: J44.0 Chronic obstructive pulmonary disease with (acute) lower respiratory infection (principal); J96.20 Acute and chronic respiratory failure, unspecified whether with hypoxia or hypercapnia; F03.90 Unspecified dementia, unspecified severity, without behavioral disturbance, psychotic disturbance, mood disturbance, and anxiety; G89.4 Chronic pain syndrome; I10 Essential (primary) hypertension; J20.9 Acute bronchitis, unspecified; J44.1 Chronic obstructive pulmonary disease with (acute) exacerbation; M06.9 Rheumatoid arthritis, unspecified; Z88.8 Allergy status to other drugs, medicaments and biological substances; I25.2 Old myocardial infarction; Z87.891 Personal history of nicotine dependence
CPT/HCPCS: 36415; 36600; 71045; 74018; 80053; 82803; 83605; 83880; 84484; 85018; 85025; 87070; 93005; 94640; 94660; 94760; 97116; 97161; 97530; 99285; G0378; J1644; J7512; J7626; Q0163; Q0177

== ENCOUNTER 2018-09-18 14:13 | Inpatient (IN) | payer MEDICAID | END 2018-09-19 14:45 | disposition home or self-care (01) | LOC: ER 14:13 → ED HOLD 17:46 → ORTHO 4S 19:46 ==

== ENCOUNTER 2018-10-21 15:22 | Emergency (ER) | payer MEDICAID ==
[~2018-10-21] VITALS: Ht 167.6 cm; Wt 40.0 kg
[~2018-10-21 15:22] MED LIST changes: -AMYL1CAP52 PO; -ATOR20TA66 PO; -DIPH25CA83 PO; -TRAM50TA2 PO
[2018-10-21 16:18] LABS: BASOPHILS % (AUTO) 0.2 % (0-1); EOSINOPHILS % (AUTO) 0 % (0-6); HEMATOCRIT 37.1 % (35.0-45.0); HEMOGLOBIN 12.7 g/dl (12.0-16.0); LYMPHOCYTES # (AUTO) 0.7 X10'3 (1.1-4.8); LYMPHOCYTES % (AUTO) 11.1 % (21-51); MEAN CORPUSCULAR HEMOGLOBIN 33.6 PG (27.0-31.0); MEAN CORPUSCULAR HGB CONC 34.1 g/dL (33.0-36.5); MEAN CORPUSCULAR VOLUME 98.4 FL (78-98); MEAN PLATELET VOLUME 8.3 FL (7.4-10.4); MONOCYTES # (AUTO) 0.4 X10'3 (0-0.9); NEUTROPHILS # (AUTO) 5.2 X10'3 (1.8-7.7); NEUTROPHILS % (AUTO) 82.7 % (42-75); PLATELET COUNT 239 X10'3 (140-440); RED BLOOD COUNT 3.77 X10'6 (4.20-5.60); RED CELL DISTRIBUTION WIDTH 13.2 % (11.5-14.5); WHITE BLOOD COUNT 6.3 X10'3 (4.5-11.0)
[2018-10-21 16:39] LABS: ALANINE AMINOTRANSFERASE 24 U/L (12-78); ALBUMIN 3.8 G/DL (3.4-5.0); ALBUMIN/GLOBULIN RATIO 1.4 (1.1-1.5); ALKALINE PHOSPHATASE 85 IU/L (46-116); ANION GAP -1 (8-16); ASPARTATE AMINO TRANSFERASE 23 U/L (10-37); BILIRUBIN,TOTAL 0.4 MG/DL (0.1-1.0); BLOOD UREA NITROGEN 15 MG/DL (7-18); BUN/CREATININE RATIO 25.9 (6.6-38.0); CALCIUM 9.3 MG/DL (8.5-10.1); CHLORIDE 92 MMOL/L (99-107); CREATININE 0.58 MG/DL (0.40-0.90); ETHANOL < 0.010 GM/DL (0.0-0.010); GLUCOSE 90 MG/DL (70-104); POTASSIUM 3.5 MMOL/L (3.5-5.1); SODIUM 135 MMOL/L (135-145); TOTAL PROTEIN 6.5 G/DL (6.4-8.2); TROPONIN I < 0.04 NG/ML (0.0-0.05); eGFR > 90 ML/MIN
[2018-10-21 16:45] LABS: ACETAMINOPHEN < 2.0 UG/ML (10-30)
[2018-10-21 17:33] LABS: CLARITY,URINE CLEAR (Clear); COLOR,URINE YELLOW (Yellow); GLUCOSE, URINE NEGATIVE (Neg); KETONES,URINE 40 mg/dl (Neg); LEUKOCYTE ESTERASE ,URINE NEGATIVE (Neg); NITRITES, URINE NEGATIVE (Neg); OCCULT BLOOD,URINE NEGATIVE (Neg); PH,URINE >=9.0 (4.8-8.0); PROTEIN,URINE 30 mg/dl (Neg); UROBILINOGEN,URINE >=8.0 E.U/dL (0.2-1.0)
[2018-10-21 17:34] LABS: URINE AMPHETAMINE SCREEN NEGATIVE (Neg); URINE BARBITUATE SCREEN NEGATIVE (Neg); URINE BENZODIAZEPINES SCREEN NEGATIVE (Neg); URINE CANNABINOID SCREEN POSITIVE (Neg); URINE COCAINE SCREEN NEGATIVE (Neg); URINE METHADONE SCREEN NEGATIVE (Neg); URINE OPIATE SCREEN NEGATIVE (Neg); URINE PHENCYCLIDINE SCREEN NEGATIVE (Neg)
[2018-10-21 17:35] LABS: UA COLLECTION TYPE STRAIGHT CATH
[2018-10-21 17:40] LABS: SQUAMOUS EPITHELIAL CELL,UR FEW /LPF (FEW)
[2018-10-21 17:41] LABS: BACTERIA,URINE NONE SEEN /HPF (Neg); RBC,URINE NONE SEEN /HPF (0-2); WBC,URINE NONE SEEN /HPF (0-4)
[2018-10-21 19:59] VITALS: BP 150/88
== END 2018-10-21 20:03 | disposition home or self-care (01) ==
LOC: ER 15:22
DX: E46 Unspecified protein-calorie malnutrition (principal); R09.02 Hypoxemia; R40.1 Stupor; J44.9 Chronic obstructive pulmonary disease, unspecified; G89.29 Other chronic pain; F12.90 Cannabis use, unspecified, uncomplicated; Z98.890 Other specified postprocedural states; Z56.0 Unemployment, unspecified; Z88.8 Allergy status to other drugs, medicaments and biological substances; Z79.82 Long term (current) use of aspirin; Z79.899 Other long term (current) drug therapy
CPT/HCPCS: 36415; 70450; 71045; 80053; 80305; 80320; 80329; 81001; 84484; 85025; 99284

== ENCOUNTER 2018-10-24 09:51 | Inpatient (IN) | payer MEDICAID | END 2018-10-27 20:29 | disposition home or self-care (01) | LOC: ER 09:51 → PCU 3S 10-25 17:45 → ICU 2S 17:00 ==

== ENCOUNTER 2019-03-02 11:20 | Inpatient (IN) | payer MEDICAID ==
[~2019-03-02] VITALS: Ht 167.6 cm; Wt 46.5 kg
[~2019-03-02 11:20] MED LIST changes: -ALBU18HF2 INH; -NAPR-1115 PO; +OMEP40CA13 PO; -OMEP40CA37 PO
--- NOTE | 2019-03-02 11:36 | NUR ---
[facility] she states that they provide her with breakfast and lunch daily. she states they leave the food outside the door and she does not know it is there. ems found food in the refridgerator at diffrent stages of decomp. ems was called because friend found her slumped over on the floor infront of an open refridgerator. recently moved from [facility] to [facility].
[2019-03-02 13:46] LABS: BASOPHILS % (AUTO) 0.3 % (0-1); EOSINOPHILS % (AUTO) 0.8 % (0-6); HEMATOCRIT 40.3 % (35.0-45.0); HEMOGLOBIN 12.7 g/dl (12.0-16.0); LYMPHOCYTES # (AUTO) 0.9 X10'3 (1.1-4.8); LYMPHOCYTES % (AUTO) 14.7 % (21-51); MEAN CORPUSCULAR HEMOGLOBIN 32.4 PG (27.0-31.0); MEAN CORPUSCULAR HGB CONC 31.6 g/dL (33.0-36.5); MEAN CORPUSCULAR VOLUME 102.4 FL (78-98); MEAN PLATELET VOLUME 9.2 FL (7.4-10.4); MONOCYTES # (AUTO) 0.6 X10'3 (0-0.9); MONOCYTES % (AUTO) 9.5 % (2-12); NEUTROPHILS # (AUTO) 4.8 X10'3 (1.8-7.7); NEUTROPHILS % (AUTO) 74.7 % (42-75); PLATELET COUNT 121 X10'3 (140-440); RED BLOOD COUNT 3.93 X10'6 (4.20-5.60); RED CELL DISTRIBUTION WIDTH 15.2 % (11.5-14.5); WHITE BLOOD COUNT 6.4 X10'3 (4.5-11.0)
--- NOTE | 2019-03-02 14:00 | NUR ---
PT HAS A NON BLANCHABLE REDNESS PRESSURE ULCER ON HER COCCYX UPON ARRIVAL TO ER
[2019-03-02 14:01] LABS: ALANINE AMINOTRANSFERASE 162 U/L (12-78); ALBUMIN 3.4 G/DL (3.4-5.0); ALBUMIN/GLOBULIN RATIO 1.2 (1.1-1.5); ALKALINE PHOSPHATASE 97 IU/L (46-116); ASPARTATE AMINO TRANSFERASE 86 U/L (10-37); BILIRUBIN,TOTAL 0.3 MG/DL (0.1-1.0); BLOOD UREA NITROGEN 23 MG/DL (7-18); BUN/CREATININE RATIO 63.9 (6.6-38.0); CALCIUM 8.6 MG/DL (8.5-10.1); CHLORIDE 101 MMOL/L (99-107); CREATININE 0.36 MG/DL (0.40-0.90); GLUCOSE 95 MG/DL (70-104); MAGNESIUM 1.5 MG/DL (1.5-2.4); PHOSPHORUS 2.9 MG/DL (2.3-4.5); POTASSIUM 3.5 MMOL/L (3.5-5.1); SODIUM 144 MMOL/L (135-145); TOTAL PROTEIN 6.3 G/DL (6.4-8.2); eGFR > 90 ML/MIN
[2019-03-02 14:15] LABS: ANION GAP -7 (8-16)
[2019-03-02 14:16] LABS: TOTAL CARBON DIOXIDE > 50 MMOL/L (24-32)
--- NOTE | 2019-03-02 15:17 | NUR ---
3 SUBOXONE PATCHES FOUND ON PATCH.
--- NOTE | 2019-03-02 15:17 | NUR ---
BED BUGS CONFIRMED
[2019-03-02 16:16] LABS: ABG BASE EXCESS 20.6 mmol/L (-2.0-3.0); ABG HCO3 54.6 mmol/L (22.0-26.0); ABG OXYGEN SATURATION 92.5 % (95-98); ABG PH (T) 7.228 (7.350-7.450); ABG PO2 (T) 73.1 mmHg (83-108); ALLEN'S TEST Positive; FLOW 2 L/min; FMetHb 0.2 % (0.3-1.12); FO2Hb 90.5 % (94-100); TOTAL HEMOGLOBIN 13.2 G/dl (12.0-16.0)
--- NOTE | 2019-03-02 16:25 | NUR ---
RT PAGED FOR [email or web address]
[2019-03-02 18:11] LABS: ABG HCO3 60.2 mmol/L (22.0-26.0); ABG OXYGEN SATURATION 97.5 % (95-98); ABG PCO2 (T) 123.1 mmHg (35.0-45.0); ABG PH (T) 7.307 (7.350-7.450); ABG PO2 (T) 100.8 mmHg (83-108); FCOHb 1.3 % (0.5-1.5); FMetHb 0.3 % (0.3-1.12); FO2Hb 95.9 % (94-100); MINUTE VOLUME 10 L/min; RESPIRATORY RATE 18 b/min; RESPIRATORY RATE (OBSERVED) 18 b/min; TIDAL VOLUME 548 mL; TOTAL HEMOGLOBIN 12.9 G/dl (12.0-16.0)
[2019-03-02] MEDS ORDERED: normal saline 1000ml 1,000 ML IV SCH (20:27)
[2019-03-02] MEDS ORDERED: potassium Cl 20 mEq SR tablet PO PRN (20:30)
[2019-03-02] MEDS ORDERED: magnesium Cl slow-release 64mg tablet PO PRN (20:30)
[2019-03-02] MEDS ORDERED: potassium CL 10mEq/100ml bag 100 ML IV PRN ×2 (20:30)
[2019-03-02] MEDS ORDERED: mag hydrox/Alum hydrox/simeth 30ml oral suspension PO PRN (20:30)
[2019-03-02] MEDS ORDERED: acetaminophen 325mg tablet PO PRN ×2 (20:30)
[2019-03-02] MEDS ORDERED: morphine 2 MG/ML inj. syringe IV PRN (20:30)
[2019-03-02] MEDS ORDERED: magnesium hydroxide 30ml (MOM) UD suspension PO PRN (20:30)
[2019-03-02] MEDS ORDERED: ondansetron/PF 4mg/2ml inj IV PRN (20:30)
[2019-03-02 21:04] LABS: BASOPHILS % (AUTO) 0.4 % (0-1); EOSINOPHILS # (AUTO) 0.1 X10'3 (0-0.9); EOSINOPHILS % (AUTO) 1.8 % (0-6); HEMATOCRIT 38.7 % (35.0-45.0); HEMOGLOBIN 12.2 g/dl (12.0-16.0); LYMPHOCYTES # (AUTO) 1.6 X10'3 (1.1-4.8); LYMPHOCYTES % (AUTO) 25.8 % (21-51); MEAN CORPUSCULAR HEMOGLOBIN 32.3 PG (27.0-31.0); MEAN CORPUSCULAR HGB CONC 31.6 g/dL (33.0-36.5); MEAN PLATELET VOLUME 8.9 FL (7.4-10.4); MONOCYTES # (AUTO) 0.8 X10'3 (0-0.9); MONOCYTES % (AUTO) 12.9 % (2-12); NEUTROPHILS # (AUTO) 3.8 X10'3 (1.8-7.7); NEUTROPHILS % (AUTO) 59.1 % (42-75); PLATELET COUNT 121 X10'3 (140-440); RED BLOOD COUNT 3.79 X10'6 (4.20-5.60); RED CELL DISTRIBUTION WIDTH 15.4 % (11.5-14.5); WHITE BLOOD COUNT 6.4 X10'3 (4.5-11.0)
[2019-03-02 21:12] LABS: ALANINE AMINOTRANSFERASE 141 U/L (12-78); ALBUMIN 3.2 G/DL (3.4-5.0); ALBUMIN/GLOBULIN RATIO 1.2 (1.1-1.5); ALKALINE PHOSPHATASE 90 IU/L (46-116); ASPARTATE AMINO TRANSFERASE 80 U/L (10-37); BILIRUBIN,TOTAL 0.3 MG/DL (0.1-1.0); BLOOD UREA NITROGEN 22 MG/DL (7-18); CALCIUM 9.1 MG/DL (8.5-10.1); CHLORIDE 99 MMOL/L (99-107); CREATININE 0.31 MG/DL (0.40-0.90); GLUCOSE 76 MG/DL (70-104); POTASSIUM 3.6 MMOL/L (3.5-5.1); SODIUM 146 MMOL/L (135-145); TOTAL PROTEIN 5.8 G/DL (6.4-8.2); eGFR > 90 ML/MIN
[2019-03-02 21:22] LABS: ANION GAP -3 (8-16)
[2019-03-02 21:24] LABS: TOTAL CARBON DIOXIDE > 50 MMOL/L (24-32)
[2019-03-02 22:20] VITALS: BP 138/85
[2019-03-02] MEDS ORDERED: guaiFENesin ER 600mg tablet PO PRN (23:30)
[2019-03-02] MEDS ORDERED: methylPREDNISolone sod succ 125mg/2ml vial IV ONE (23:35)
[2019-03-02] MEDS ORDERED: azithromycin/NS 500mg/250ml 250 ML IV ONE (23:35)
[2019-03-02] MEDS ORDERED: loratadine 10mg tablet PO PRN (23:35)
[2019-03-02] MEDS ORDERED: ipratropium/albuterol 3ml nebule NEB PRN (23:35)
[2019-03-03] VITALS (9 sets, daily range): BP systolic 98–122; BP diastolic 63–81
[2019-03-03 00:30] LABS: ABG BASE EXCESS 21.9 mmol/L (-2.0-3.0); ABG HCO3 52.8 mmol/L (22.0-26.0); ABG OXYGEN SATURATION 90.5 % (95-98); ABG PCO2 (T) 96.3 mmHg (35.0-45.0); ABG PH (T) 7.354 (7.350-7.450); ABG PO2 (T) 60.1 mmHg (83-108); ALLEN'S TEST Positive; FCOHb 1.4 % (0.5-1.5); FMetHb 0.1 % (0.3-1.12); FO2Hb 89.1 % (94-100); MINUTE VOLUME 16 L/min; PATIENT TEMPERATURE 36.4; RESPIRATORY RATE 18 b/min; RESPIRATORY RATE (OBSERVED) 22 b/min; TOTAL HEMOGLOBIN 12.6 G/dl (12.0-16.0)
[2019-03-03 01:40] LABS: URINE HCG NEGATIVE (NEG)
[2019-03-03 01:44] LABS: CLARITY,URINE SLIGHTLY CLOUDY (Clear); COLOR,URINE YELLOW (Yellow); GLUCOSE, URINE NEGATIVE (Neg); KETONES,URINE 15 mg/dl (Neg); LEUKOCYTE ESTERASE ,URINE TRACE (Neg); NITRITES, URINE NEGATIVE (Neg); OCCULT BLOOD,URINE NEGATIVE (Neg); PH,URINE 6.5 (4.8-8.0); PROTEIN,URINE 30 mg/dl (Neg)
[2019-03-03 01:49] LABS: URINE AMPHETAMINE SCREEN NEGATIVE (Neg); URINE BARBITUATE SCREEN NEGATIVE (Neg); URINE BENZODIAZEPINES SCREEN NEGATIVE (Neg); URINE CANNABINOID SCREEN NEGATIVE (Neg); URINE COCAINE SCREEN NEGATIVE (Neg); URINE METHADONE SCREEN NEGATIVE (Neg); URINE OPIATE SCREEN NEGATIVE (Neg); URINE PHENCYCLIDINE SCREEN NEGATIVE (Neg)
[2019-03-03 02:00] LABS: UA COLLECTION TYPE STRAIGHT CATH
[2019-03-03 02:15] LABS: BACTERIA,URINE 2+ /HPF (Neg); HYALINE CASTS 0-3 /LPF (NEGATIVE); MUCUS STRANDS FEW /LPF (Neg); RBC,URINE NONE SEEN /HPF (0-2); SQUAMOUS EPITHELIAL CELL,UR MANY /LPF (FEW); TRANSITIONAL EPI CELLS,URINE FEW /HPF; WBC,URINE 0-4 /HPF (0-4); YEAST FEW /HPF (NEGATIVE)
[2019-03-03 02:20] LABS: BASOPHILS % (AUTO) 0.2 % (0-1); EOSINOPHILS % (AUTO) 0.7 % (0-6); HEMATOCRIT 32.5 % (35.0-45.0); HEMOGLOBIN 10.2 g/dl (12.0-16.0); LYMPHOCYTES # (AUTO) 0.6 X10'3 (1.1-4.8); LYMPHOCYTES % (AUTO) 10.2 % (21-51); MEAN CORPUSCULAR HEMOGLOBIN 32.1 PG (27.0-31.0); MEAN CORPUSCULAR HGB CONC 31.4 g/dL (33.0-36.5); MEAN CORPUSCULAR VOLUME 102.1 FL (78-98); MONOCYTES # (AUTO) 0.3 X10'3 (0-0.9); MONOCYTES % (AUTO) 5.7 % (2-12); NEUTROPHILS # (AUTO) 4.8 X10'3 (1.8-7.7); NEUTROPHILS % (AUTO) 83.2 % (42-75); PLATELET COUNT 99 X10'3 (140-440); RED BLOOD COUNT 3.18 X10'6 (4.20-5.60); RED CELL DISTRIBUTION WIDTH 15.1 % (11.5-14.5); WHITE BLOOD COUNT 5.8 X10'3 (4.5-11.0)
[2019-03-03 02:33] LABS: ALBUMIN 2.3 G/DL (3.4-5.0); ANION GAP 0 (8-16); BLOOD UREA NITROGEN 17 MG/DL (7-18); CALCIUM 6.2 MG/DL (8.5-10.1); CHLORIDE 108 MMOL/L (99-107); CREATININE 0.17 MG/DL (0.40-0.90); GLUCOSE 65 MG/DL (70-104); SODIUM 148 MMOL/L (135-145); TOTAL CARBON DIOXIDE 39.9 MMOL/L (24-32); TROPONIN I 0.15 NG/ML (0.0-0.05); eGFR > 90 ML/MIN
[2019-03-03 02:40] LABS: POTASSIUM 2.5 MMOL/L (3.5-5.1)
[2019-03-03] MEDS: magnesium 4gm in 100ml NS 100 ML IV PRN (02:51)
[2019-03-03] MEDS: potassium Cl 20 mEq SR tablet PO PRN ×3 (02:52→14:56)
[2019-03-03] MEDS: ipratropium/albuterol 3ml nebule NEB SCH ×6 (04:03→23:00)
--- NOTE | 2019-03-03 06:00 | NUR ---
Patient in room PCU 3010. I have received report from Karma NINO and had the opportunity to ask questions and assume patient care.
--- NOTE | 2019-03-03 06:11 | NUR ---
Problems reprioritized. Patient report given, questions answered & plan of care reviewed with Jolly NINO.
--- NOTE | 2019-03-03 07:26 | NUR ---
Page to Dr Arboleda re:Room 3017 Gloria Sarkar no diet ordered, what diet would you like? please advise Jolly [phone]
[2019-03-03] MEDS: K and/or MAG REPLACEMENT MC SCH (08:00)
--- NOTE | 2019-03-03 08:09 | NUR ---
Page to Dr Arboleda re:Room 3016 Gloria Sarkar no diet ordered, what diet would you like? please advise Jolly [phone]
[2019-03-03] MEDS ORDERED: potassium CL 20mEq in D5-1/2NS 1,000 ML IV SCH (09:05)
[2019-03-03] MEDS ORDERED: magnesium 2GM in 50ml NS 50 ML IV ONE (09:05)
[2019-03-03] MEDS: aspirin 81mg tablet.DR PO SCH (09:53)
[2019-03-03] MEDS: buPROPion 75mg tablet PO SCH (09:54)
[2019-03-03] MEDS: azithromycin 250mg tablet PO SCH (09:54)
[2019-03-03] MEDS: vitamin D (cholecalciferol) 1,000 unit tablet PO SCH (09:54)
[2019-03-03] MEDS: pantoprazole 40mg Tablet.DR PO SCH (09:54)
[2019-03-03] MEDS: metoprolol succinate 25mg (24-HOUR) SR. Tablet PO SCH (09:55)
[2019-03-03] MEDS: LIPASE/PROTEASE/AMYLASE 4,200 unit CAPSULE.DR PO SCH ×3 (09:55→19:43)
[2019-03-03] MEDS: enoxaparin 40mg/0.4ml syringe SQ SCH (09:56)
[2019-03-03] MEDS: methylPREDNISolone sod succ/PF 40mg inj. IV SCH ×2 (09:57→16:11)
[2019-03-03] MEDS ORDERED: BUPR1PAT10 TOP (10:01)
[2019-03-03] MEDS: gabapentin 100mg capsule PO SCH ×3 (10:34→20:29)
[2019-03-03] MEDS: lactose-reduced food (Ensure Enlive) - 237ml bottle PO SCH ×2 (13:00→18:00)
[2019-03-03] MEDS: magnesium 2GM in 50ml NS 50 ML IV PRN (14:40)
[2019-03-03] MEDS: HYDROcodone/acetaminophen 10/325mg tab PO PRN (15:26)
[2019-03-03] MEDS ORDERED: magnesium oxide 400mg tablet PO SCH (16:00)
--- NOTE | 2019-03-03 16:20 | NUR ---
Attempted PIV on right wrist, attemp failed. Pressure applied, guaze and tape applied.
--- NOTE | 2019-03-03 18:00 | NUR ---
Problems reprioritized. Patient report given, questions answered & plan of care reviewed with Lynette NINO.
--- NOTE | 2019-03-03 18:02 | NUR ---
Patient with voracious appetite, eating 100% of meals and per RN patient had two breakfast trays and additional snacks. Will add double protein, d/w dietary. Patient likely to have very poor intake for a couple days prior to admission, with great appetite and intake now. Per MD note patient usually eats meals that are brought to her at her board and care. Patient currently A/O x2, but can feed herself. Chronically low weight with history of COPD, oxygen dependent, however has increased by 9 kg since last October ([facility] weight of 31 kg at that time) Other previous weights are patient stated. No apparent issues chewing or swallowing. Will continue to follow. Recommend: 1. continue regular diet 2. send double protein 3. weight per rx Addendum: 03/03/19 at [address] Amended: Links added.
--- NOTE | 2019-03-03 19:04 | NUR ---
tx deferred patient eating
[2019-03-03 19:29] LABS: MAGNESIUM 2.3 MG/DL (1.5-2.4); POTASSIUM 5.7 MMOL/L (3.5-5.1)
--- NOTE | 2019-03-03 20:01 | NUR ---
PAGER ID: [phone] MESSAGE: Patient Gloria Sarkar in room 3010A has K+ of 5.7 and currently has KCL 20 mEq in D5W-07/07. Should fluids be DC'd? Sina Lynette [phone] Addendum: 03/03/19 at 2006 by Pearl Chris RN Fluids have been ordered to DC as well as scheduled slow-mag ordered due to resulted mag of 2.3. Both meds no longer needed.
[2019-03-03] MEDS: sertraline 50mg tablet PO SCH (20:29)
[2019-03-04] MEDS: methylPREDNISolone sod succ/PF 40mg inj. IV SCH ×3 (00:53→18:36)
[2019-03-04 03:00] VITALS: BP 135/89
[2019-03-04 06:00] VITALS: BP 122/85
--- NOTE | 2019-03-04 06:00 | NUR ---
Patient in room PCU 3010. I have received report from Lynette NINO and had the opportunity to ask questions and assume patient care.
[2019-03-04 06:12] LABS: BASOPHILS % (AUTO) 0.1 % (0-1); EOSINOPHILS % (AUTO) 0 % (0-6); HEMATOCRIT 37.7 % (35.0-45.0); HEMOGLOBIN 12.3 g/dl (12.0-16.0); LYMPHOCYTES # (AUTO) 0.4 X10'3 (1.1-4.8); LYMPHOCYTES % (AUTO) 4.5 % (21-51); MEAN CORPUSCULAR HEMOGLOBIN 32.4 PG (27.0-31.0); MEAN CORPUSCULAR HGB CONC 32.5 g/dL (33.0-36.5); MEAN CORPUSCULAR VOLUME 99.6 FL (78-98); MEAN PLATELET VOLUME 9.4 FL (7.4-10.4); MONOCYTES # (AUTO) 0.3 X10'3 (0-0.9); MONOCYTES % (AUTO) 3.3 % (2-12); NEUTROPHILS # (AUTO) 8.6 X10'3 (1.8-7.7); NEUTROPHILS % (AUTO) 92.1 % (42-75); PLATELET COUNT 163 X10'3 (140-440); RED BLOOD COUNT 3.79 X10'6 (4.20-5.60); RED CELL DISTRIBUTION WIDTH 15.1 % (11.5-14.5); WHITE BLOOD COUNT 9.4 X10'3 (4.5-11.0)
[2019-03-04 06:36] LABS: ANION GAP -2 (8-16); BLOOD UREA NITROGEN 15 MG/DL (7-18); BUN/CREATININE RATIO 34.9 (6.6-38.0); CALCIUM 8.5 MG/DL (8.5-10.1); CHLORIDE 100 MMOL/L (99-107); CREATININE 0.43 MG/DL (0.40-0.90); GLUCOSE 200 MG/DL (70-104); MAGNESIUM 1.7 MG/DL (1.5-2.4); POTASSIUM 5.2 MMOL/L (3.5-5.1); SODIUM 141 MMOL/L (135-145); eGFR > 90 ML/MIN
[2019-03-04 06:43] LABS: TOTAL CARBON DIOXIDE 43.4 MMOL/L (24-32)
--- NOTE | 2019-03-04 06:45 | NUR ---
Problems reprioritized. Patient report given, questions answered & plan of care reviewed with MICA Hodge.
--- NOTE | 2019-03-04 06:45 | NUR ---
Page to Dr Morales re: Room 3010 Gloria [facility] critical lab CO2 43.4, please advise Jolly Church Addendum: 03/04/19 at 0705 by Jolly Castillo RN Call back from Dr Morales no new orders. No ABG. Assess pt for clinical symptoms of drowsiness and use Bipap prn. Patient is awake and alert, O2 sat 94% on 2 LPM via nasal cannula. Denies sob, dizziness or lightheadedness.
[2019-03-04] MEDS: ipratropium/albuterol 3ml nebule NEB SCH ×5 (07:31→23:00)
[2019-03-04] MEDS: LIPASE/PROTEASE/AMYLASE 4,200 unit CAPSULE.DR PO SCH ×3 (07:58→18:42)
[2019-03-04] MEDS: aspirin 81mg tablet.DR PO SCH (07:59)
[2019-03-04] MEDS: pantoprazole 40mg Tablet.DR PO SCH (07:59)
[2019-03-04] MEDS: metoprolol succinate 25mg (24-HOUR) SR. Tablet PO SCH (07:59)
[2019-03-04] MEDS: gabapentin 100mg capsule PO SCH ×2 (07:59→14:32)
[2019-03-04] MEDS: vitamin D (cholecalciferol) 1,000 unit tablet PO SCH (07:59)
[2019-03-04] MEDS: azithromycin 250mg tablet PO SCH (07:59)
[2019-03-04] MEDS: buPROPion 75mg tablet PO SCH (07:59)
[2019-03-04] MEDS: K and/or MAG REPLACEMENT MC SCH (08:00)
[2019-03-04] MEDS: enoxaparin 40mg/0.4ml syringe SQ SCH (08:03)
[2019-03-04] MEDS: HYDROcodone/acetaminophen 10/325mg tab PO PRN (08:11)
[2019-03-04] MEDS: lactose-reduced food (Ensure Enlive) - 237ml bottle PO SCH ×3 (08:13→18:42)
[2019-03-04 11:00] VITALS: BP 111/71
[2019-03-04 15:00] VITALS: BP 112/69
[2019-03-04 15:50] LABS: ABG BASE EXCESS 11.7 mmol/L (-2.0-3.0); ABG HCO3 39.1 mmol/L (22.0-26.0); ABG OXYGEN SATURATION 88.8 % (95-98); ABG PCO2 (T) 65.7 mmHg (35.0-45.0); ABG PH (T) 7.393 (7.350-7.450); ABG PO2 (T) 55.7 mmHg (83-108); ALLEN'S TEST Positive; FCOHb 0.3 % (0.5-1.5); FLOW 2 L/min; FMetHb 0.3 % (0.3-1.12); FO2Hb 88.3 % (94-100); RESPIRATORY RATE (OBSERVED) 17 b/min; TOTAL HEMOGLOBIN 12.5 G/dl (12.0-16.0)
[2019-03-04 18:00] VITALS: BP 96/52
--- NOTE | 2019-03-04 18:00 | NUR ---
Problems reprioritized. Patient report given, questions answered & plan of care reviewed with Lynette NINO.
[2019-03-04] MEDS: morphine 2 MG/ML inj. syringe IV PRN (18:42)
[2019-03-04 22:00] VITALS: BP 109/72
[2019-03-05] MEDS: methylPREDNISolone sod succ/PF 40mg inj. IV SCH ×2 (00:50→07:50)
[2019-03-05] MEDS: lactobacillus rhamnosus 10,000 MMU CELLS/CAPSULE PO SCH ×3 (00:50→19:22)
[2019-03-05] MEDS: gabapentin 100mg capsule PO SCH ×4 (00:50→21:23)
[2019-03-05] MEDS: sertraline 50mg tablet PO SCH ×2 (00:50→21:23)
[2019-03-05] MEDS: morphine 2 MG/ML inj. syringe IV PRN ×2 (00:59→19:25)
[2019-03-05 02:00] VITALS: BP 111/69
--- NOTE | 2019-03-05 06:57 | NUR ---
Patient in room PCU 3010. I have received report from Lynette NINO and had the opportunity to ask questions and assume patient care.
[2019-03-05 07:00] VITALS: BP 118/73
[2019-03-05] MEDS: ipratropium/albuterol 3ml nebule NEB SCH ×5 (07:02→23:00)
[2019-03-05 07:09] LABS: BASOPHILS % (AUTO) 0 % (0-1); EOSINOPHILS % (AUTO) 0 % (0-6); HEMOGLOBIN 12.5 g/dl (12.0-16.0); LYMPHOCYTES # (AUTO) 0.3 X10'3 (1.1-4.8); LYMPHOCYTES % (AUTO) 3.3 % (21-51); MEAN CORPUSCULAR HEMOGLOBIN 32.1 PG (27.0-31.0); MEAN PLATELET VOLUME 8.8 FL (7.4-10.4); MONOCYTES # (AUTO) 0.3 X10'3 (0-0.9); MONOCYTES % (AUTO) 3.3 % (2-12); NEUTROPHILS # (AUTO) 9.6 X10'3 (1.8-7.7); NEUTROPHILS % (AUTO) 93.4 % (42-75); PLATELET COUNT 163 X10'3 (140-440); WHITE BLOOD COUNT 10.3 X10'3 (4.5-11.0)
[2019-03-05 07:34] LABS: ANION GAP -1 (8-16); BLOOD UREA NITROGEN 20 MG/DL (7-18); BUN/CREATININE RATIO 46.5 (6.6-38.0); CALCIUM 8.5 MG/DL (8.5-10.1); CHLORIDE 98 MMOL/L (99-107); CREATININE 0.43 MG/DL (0.40-0.90); GLUCOSE 193 MG/DL (70-104); MAGNESIUM 1.3 MG/DL (1.5-2.4); POTASSIUM 4.9 MMOL/L (3.5-5.1); SODIUM 141 MMOL/L (135-145); eGFR > 90 ML/MIN
[2019-03-05 07:46] LABS: TOTAL CARBON DIOXIDE 43.5 MMOL/L (24-32)
[2019-03-05] MEDS: aspirin 81mg tablet.DR PO SCH (07:48)
[2019-03-05] MEDS: vitamin D (cholecalciferol) 1,000 unit tablet PO SCH (07:48)
[2019-03-05] MEDS: pantoprazole 40mg Tablet.DR PO SCH (07:48)
[2019-03-05] MEDS: metoprolol succinate 25mg (24-HOUR) SR. Tablet PO SCH (07:49)
[2019-03-05] MEDS: buPROPion 75mg tablet PO SCH (07:49)
[2019-03-05] MEDS: LIPASE/PROTEASE/AMYLASE 4,200 unit CAPSULE.DR PO SCH ×4 (07:49→19:22)
[2019-03-05] MEDS: azithromycin 250mg tablet PO SCH (07:50)
[2019-03-05] MEDS: enoxaparin 40mg/0.4ml syringe SQ SCH (07:52)
[2019-03-05] MEDS: lactose-reduced food (Ensure Enlive) - 237ml bottle PO SCH ×3 (08:00→17:08)
[2019-03-05] MEDS: K and/or MAG REPLACEMENT MC SCH (08:00)
--- NOTE | 2019-03-05 08:26 | NUR ---
Paged Dr. Hlal PAGER ID: [phone] MESSAGE: Kwabena NINO [phone] Gloria Sarkar: Critical CO2 43.5, unchanged from yesterday at 43.4. Thank you.
[2019-03-05 11:00] VITALS: BP 109/76
--- NOTE | 2019-03-05 11:26 | NUR ---
Reassessment: Pt continues meeting nutrient needs with 100% PO intake of meals on regular diet receiving double protein and 100% PO intake of Ensure Enlive TID. LBM 03/03, d/w dietary to send prunes with dinner tonight. Per MD notes pt with cachectic appearance. Current BMI is 14.2 however current documented wt of 40 kg is patient stated. Patient previously admitted in October of this year with documented wt of 31 kg taken with a bed scale resulting in a BMI of 10.4 with documented ht of 68", which is likely patient's actual height per documented ht hx at previous visits. 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 Pt also documented with BLE 1+ trace edema and bilat foot 4+ severe edema. Pt currently meets criteria for severe malnutrition, MD notified. Will continue to follow. Recommend: 1. continue regular diet 2. send double protein 3. continue Ensure Enlive TID 4. routine bowel care 5. weight per rx Addendum: 03/05/19 at [address] Amended: Links added.
[2019-03-05] MEDS: acetaZOLAMIDE 250mg tablet PO SCH ×2 (12:50→19:22)
[2019-03-05] MEDS: magnesium 2GM in 50ml NS 50 ML IV PRN (12:51)
[2019-03-05] MEDS: magnesium 4gm in 100ml NS 100 ML IV PRN (13:56)
[2019-03-05 15:00] VITALS: BP 125/82
--- NOTE | 2019-03-05 18:12 | NUR ---
Problems reprioritized. Patient report given, questions answered & plan of care reviewed with Lynette NINO.
[2019-03-05 19:00] VITALS: BP 118/78
[2019-03-05 23:00] VITALS: BP 108/66
[2019-03-06 03:00] VITALS: BP 106/67
--- NOTE | 2019-03-06 06:28 | NUR ---
Problems reprioritized. Patient report given, questions answered & plan of care reviewed with MICA Swanson.
[2019-03-06 06:43] LABS: ALBUMIN 2.9 G/DL (3.4-5.0); ANION GAP 2 (8-16); BLOOD UREA NITROGEN 26 MG/DL (7-18); BUN/CREATININE RATIO 57.8 (6.6-38.0); CALCIUM 8.4 MG/DL (8.5-10.1); CHLORIDE 100 MMOL/L (99-107); CREATININE 0.45 MG/DL (0.40-0.90); GLUCOSE 113 MG/DL (70-104); MAGNESIUM 1.8 MG/DL (1.5-2.4); POTASSIUM 3.9 MMOL/L (3.5-5.1); SODIUM 140 MMOL/L (135-145); TOTAL CARBON DIOXIDE 38.3 MMOL/L (24-32); eGFR > 90 ML/MIN
[2019-03-06 06:47] VITALS: BP 116/76
[2019-03-06 06:48] LABS: BASOPHILS % (AUTO) 0.1 % (0-1); EOSINOPHILS # (AUTO) 0.1 X10'3 (0-0.9); EOSINOPHILS % (AUTO) 0.9 % (0-6); HEMOGLOBIN 11.8 g/dl (12.0-16.0); LYMPHOCYTES # (AUTO) 1.5 X10'3 (1.1-4.8); LYMPHOCYTES % (AUTO) 13.4 % (21-51); MEAN CORPUSCULAR HEMOGLOBIN 32.2 PG (27.0-31.0); MEAN CORPUSCULAR VOLUME 100.8 FL (78-98); MEAN PLATELET VOLUME 9.4 FL (7.4-10.4); MONOCYTES % (AUTO) 9.3 % (2-12); NEUTROPHILS # (AUTO) 8.4 X10'3 (1.8-7.7); NEUTROPHILS % (AUTO) 76.3 % (42-75); PLATELET COUNT 158 X10'3 (140-440); RED BLOOD COUNT 3.67 X10'6 (4.20-5.60); RED CELL DISTRIBUTION WIDTH 15.2 % (11.5-14.5)
--- NOTE | 2019-03-06 06:50 | NUR ---
Patient in room PCU 3010. I have received report from Lynette NINO given the opportunity to ask questions and assume patient care.
[2019-03-06] MEDS: ipratropium/albuterol 3ml nebule NEB SCH ×5 (07:35→23:00)
[2019-03-06] MEDS: lactobacillus rhamnosus 10,000 MMU CELLS/CAPSULE PO SCH ×2 (08:35→19:38)
[2019-03-06] MEDS: aspirin 81mg tablet.DR PO SCH (08:36)
[2019-03-06] MEDS: metoprolol succinate 25mg (24-HOUR) SR. Tablet PO SCH (08:36)
[2019-03-06] MEDS: azithromycin 250mg tablet PO SCH (08:36)
[2019-03-06] MEDS: acetaZOLAMIDE 250mg tablet PO SCH ×2 (08:36→19:38)
[2019-03-06] MEDS: vitamin D (cholecalciferol) 1,000 unit tablet PO SCH (08:36)
[2019-03-06] MEDS: pantoprazole 40mg Tablet.DR PO SCH (08:36)
[2019-03-06] MEDS: predniSONE 20 mg tablet PO SCH (08:36)
[2019-03-06] MEDS: gabapentin 100mg capsule PO SCH ×3 (08:36→21:04)
[2019-03-06] MEDS: buPROPion 75mg tablet PO SCH (08:36)
[2019-03-06] MEDS: enoxaparin 40mg/0.4ml syringe SQ SCH (08:38)
[2019-03-06] MEDS: lactose-reduced food (Ensure Enlive) - 237ml bottle PO SCH ×3 (08:38→18:00)
[2019-03-06] MEDS: K and/or MAG REPLACEMENT MC SCH (08:39)
[2019-03-06 11:00] VITALS: BP 101/62
--- NOTE | 2019-03-06 11:47 | NUR ---
Head lice notification: Brett TRAN PAGER ID: [phone] MESSAGE: PtMilton Sarkar, Jag. [phone] Has visible head lice nits attached to hair follicles. Tx. Kiki NINO
--- NOTE | 2019-03-06 12:48 | NUR ---
Pressure Prophylaxis to coccyx Opifoam Dressing, Johnie Mat placed, Skin care and assessment provided.
[2019-03-06] MEDS: HYDROcodone/acetaminophen 10/325mg tab PO PRN ×2 (13:03→16:29)
[2019-03-06] MEDS: LIPASE/PROTEASE/AMYLASE 4,200 unit CAPSULE.DR PO SCH ×2 (13:14→19:38)
[2019-03-06] MEDS ORDERED: Permethrin 1% 59ml topical rinse TP ONE (14:40)
[2019-03-06] MEDS ORDERED: Permethrin Cream 60gm TP ONE (14:40)
[2019-03-06 15:00] VITALS: BP 102/74
[2019-03-06] MEDS: Ivermectin 3mg tablet PO SCH (16:04)
--- NOTE | 2019-03-06 16:30 | NUR ---
Pt metabolic encephalopathy improving per MD note; written malnutrition ed w/ RD contact information mailed to pt home address in case continues to not be appropriate prior to d/c. Addendum: 03/06/19 at [address] Amended: Links added.
--- NOTE | 2019-03-06 17:37 | NUR ---
Lice Treatment All steps are completed, normal wash and hair styling still necessary.
[2019-03-06 19:00] VITALS: BP 97/63
[2019-03-06] MEDS: morphine 2 MG/ML inj. syringe IV PRN (19:40)
[2019-03-06] MEDS: sertraline 50mg tablet PO SCH (21:04)
[2019-03-06 22:00] VITALS: BP 114/78
[2019-03-07 02:00] VITALS: BP 104/66
[2019-03-07] MEDS: morphine 2 MG/ML inj. syringe IV PRN (04:43)
--- NOTE | 2019-03-07 05:50 | NUR ---
Completed bed linen change and shampooed/combed through hair. Pt was also wiped with warm bath wipes with lotion applied.
[2019-03-07 06:00] VITALS: BP 116/76
--- NOTE | 2019-03-07 06:09 | NUR ---
Problems reprioritized. Patient report given, questions answered & plan of care reviewed with MICA Swanson.
--- NOTE | 2019-03-07 06:25 | NUR ---
Patient in room PCU 3010. I have received report from Lynette NINO, and had the opportunity to ask questions and assume patient care.
[2019-03-07] MEDS: K and/or MAG REPLACEMENT MC SCH (06:29)
[2019-03-07 07:06] LABS: BASOPHILS % (AUTO) 0.1 % (0-1); EOSINOPHILS # (AUTO) 0.1 X10'3 (0-0.9); EOSINOPHILS % (AUTO) 0.8 % (0-6); HEMATOCRIT 36.1 % (35.0-45.0); HEMOGLOBIN 11.6 g/dl (12.0-16.0); LYMPHOCYTES # (AUTO) 1.3 X10'3 (1.1-4.8); LYMPHOCYTES % (AUTO) 13.6 % (21-51); MEAN CORPUSCULAR HEMOGLOBIN 32.4 PG (27.0-31.0); MEAN CORPUSCULAR HGB CONC 32.2 g/dL (33.0-36.5); MEAN CORPUSCULAR VOLUME 100.5 FL (78-98); MEAN PLATELET VOLUME 8.7 FL (7.4-10.4); MONOCYTES % (AUTO) 10.4 % (2-12); NEUTROPHILS # (AUTO) 7.1 X10'3 (1.8-7.7); NEUTROPHILS % (AUTO) 75.1 % (42-75); PLATELET COUNT 180 X10'3 (140-440); RED BLOOD COUNT 3.59 X10'6 (4.20-5.60); RED CELL DISTRIBUTION WIDTH 15.7 % (11.5-14.5); WHITE BLOOD COUNT 9.5 X10'3 (4.5-11.0)
[2019-03-07] MEDS: ipratropium/albuterol 3ml nebule NEB SCH ×5 (07:21→23:00)
[2019-03-07 07:29] LABS: ANION GAP 4 (8-16); BLOOD UREA NITROGEN 22 MG/DL (7-18); BUN/CREATININE RATIO 42.3 (6.6-38.0); CALCIUM 8.4 MG/DL (8.5-10.1); CHLORIDE 101 MMOL/L (99-107); CREATININE 0.52 MG/DL (0.40-0.90); GLUCOSE 120 MG/DL (70-104); MAGNESIUM 1.4 MG/DL (1.5-2.4); POTASSIUM 3.8 MMOL/L (3.5-5.1); SODIUM 141 MMOL/L (135-145); TOTAL CARBON DIOXIDE 36.5 MMOL/L (24-32); eGFR > 90 ML/MIN
[2019-03-07] MEDS: metoprolol succinate 25mg (24-HOUR) SR. Tablet PO SCH (07:41)
[2019-03-07] MEDS: enoxaparin 40mg/0.4ml syringe SQ SCH (07:42)
[2019-03-07] MEDS: LIPASE/PROTEASE/AMYLASE 4,200 unit CAPSULE.DR PO SCH ×3 (07:42→18:00)
[2019-03-07] MEDS: acetaZOLAMIDE 250mg tablet PO SCH ×2 (07:42→20:00)
[2019-03-07] MEDS: pantoprazole 40mg Tablet.DR PO SCH (07:42)
[2019-03-07] MEDS: predniSONE 20 mg tablet PO SCH (07:42)
[2019-03-07] MEDS: lactobacillus rhamnosus 10,000 MMU CELLS/CAPSULE PO SCH ×2 (07:42→20:00)
[2019-03-07] MEDS: buPROPion 75mg tablet PO SCH (07:42)
[2019-03-07] MEDS: aspirin 81mg tablet.DR PO SCH (07:42)
[2019-03-07] MEDS: vitamin D (cholecalciferol) 1,000 unit tablet PO SCH (07:44)
[2019-03-07] MEDS: lactose-reduced food (Ensure Enlive) - 237ml bottle PO SCH ×3 (07:45→18:00)
[2019-03-07] MEDS: gabapentin 100mg capsule PO SCH ×3 (07:45→21:55)
[2019-03-07 11:32] VITALS: BP 95/61
[2019-03-07 15:00] VITALS: BP 112/76
--- NOTE | 2019-03-07 17:51 | NUR ---
Pt. requesting meal. Diet change request sent to Dr. Gilmore.
--- NOTE | 2019-03-07 17:52 | NUR ---
Document Page PAGER ID: [phone] MESSAGE: Onesimo Altamirano [id number] Tropgisella dante t0, 3 and 6 hours are neg. Echo is completed, CTA results completed. Without Chest Pain or discomfort. Pt. is requesting food and has a NPO diet..
--- NOTE | 2019-03-07 18:36 | NUR ---
Patient in room PCU 3010. I have received report from Kiki NINO and had the opportunity to ask questions and assume patient care.
[2019-03-07 19:00] VITALS: BP 103/58
[2019-03-07] MEDS: HYDROcodone/acetaminophen 10/325mg tab PO PRN (21:48)
[2019-03-07] MEDS: sertraline 50mg tablet PO SCH (21:55)
[2019-03-07 23:00] VITALS: BP 110/69
[2019-03-08 03:00] VITALS: BP 96/61
[2019-03-08 06:00] VITALS: BP 102/72
--- NOTE | 2019-03-08 06:28 | NUR ---
Patient in room PCU 3010. I have received report from Cristela NINO and had the opportunity to ask questions and assume patient care. Pt is in bed sleeping, all needs met at this time.
--- NOTE | 2019-03-08 06:30 | NUR ---
Patient in room PCU 3010. I have received report from MICA Craft and had the opportunity to ask questions and assume patient care.
--- NOTE | 2019-03-08 06:38 | NUR ---
Problems reprioritized. Patient report given, questions answered & plan of care reviewed with Lani NINO.
[2019-03-08] MEDS: lactobacillus rhamnosus 10,000 MMU CELLS/CAPSULE PO SCH ×2 (07:52→19:37)
[2019-03-08] MEDS: pantoprazole 40mg Tablet.DR PO SCH (07:52)
[2019-03-08] MEDS: LIPASE/PROTEASE/AMYLASE 4,200 unit CAPSULE.DR PO SCH ×3 (07:53→19:37)
[2019-03-08] MEDS: buPROPion 75mg tablet PO SCH (07:53)
[2019-03-08] MEDS: metoprolol succinate 25mg (24-HOUR) SR. Tablet PO SCH (07:53)
[2019-03-08] MEDS: acetaZOLAMIDE 250mg tablet PO SCH (07:53)
[2019-03-08] MEDS: predniSONE 20 mg tablet PO SCH (07:53)
[2019-03-08] MEDS: gabapentin 100mg capsule PO SCH ×3 (07:53→21:02)
[2019-03-08] MEDS: vitamin D (cholecalciferol) 1,000 unit tablet PO SCH (07:53)
[2019-03-08] MEDS: aspirin 81mg tablet.DR PO SCH (07:53)
[2019-03-08] MEDS: enoxaparin 40mg/0.4ml syringe SQ SCH (07:54)
[2019-03-08] MEDS: lactose-reduced food (Ensure Enlive) - 237ml bottle PO SCH ×3 (08:00→18:00)
[2019-03-08] MEDS: K and/or MAG REPLACEMENT MC SCH (08:00)
[2019-03-08] MEDS: ipratropium/albuterol 3ml nebule NEB SCH ×4 (08:33→19:16)
--- NOTE | 2019-03-08 09:22 | NUR ---
PAGER ID: [phone] MESSAGE: [phone] Gloria Sarkar: Pt Mg is 1.4, can we have orders for prn electrolyte replacement? Thanks Pita Knapp
--- NOTE | 2019-03-08 09:37 | NUR ---
Reassessment: Pt with fluctuating PO intake with some 25% and 50% however overall 100% on regular diet receiving double protein TID. Pt also with fluctuating PO intake of ONS documented with 0% and 25%, again overall 100%, pt likely meeting nutrient needs at this time. [facility] 03/06. Will continue to follow. Recommend: 1. continue regular diet 2. send double protein 3. continue Ensure Enlive TID 4. routine bowel care 5. weight per rx Addendum: 03/08/19 at [address] Amended: Links added.
[2019-03-08 11:00] VITALS: BP 95/59
[2019-03-08] MEDS ORDERED: magnesium oxide 400mg tablet PO ONE (11:30)
[2019-03-08] MEDS: HYDROcodone/acetaminophen 10/325mg tab PO PRN ×2 (12:57→21:08)
[2019-03-08 15:00] VITALS: BP 101/66
[2019-03-08 18:00] VITALS: BP 102/60
--- NOTE | 2019-03-08 18:18 | NUR ---
Problems reprioritized. Patient report given, questions answered & plan of care reviewed with Cristela NINO.
--- NOTE | 2019-03-08 18:18 | NUR ---
Problems reprioritized. Patient report given, questions answered & plan of care reviewed with MICA Archibald.
--- NOTE | 2019-03-08 18:19 | NUR ---
Problems reprioritized. Patient report given, questions answered & plan of care reviewed with MICA Rodriguez.
--- NOTE | 2019-03-08 19:03 | NUR ---
Patient in room PCU 3010. I have received report from Geetha Gomez RN and had the opportunity to ask questions and assume patient care.
[2019-03-08] MEDS: sertraline 50mg tablet PO SCH (21:02)
[2019-03-08 23:00] VITALS: BP 100/61
[2019-03-09 03:00] VITALS: BP 110/61
[2019-03-09 06:00] VITALS: BP 97/59
--- NOTE | 2019-03-09 06:21 | NUR ---
Problems reprioritized. Patient report given, questions answered & plan of care reviewed with Geetha RN.
--- NOTE | 2019-03-09 06:45 | NUR ---
Patient in room PCU 3010. I have received report from Cristela NINO and had the opportunity to ask questions and assume patient care. Pt is in bed, is being assisted to the bathroom, will continue to monitor.
--- NOTE | 2019-03-09 06:49 | NUR ---
Patient in room [facility] 3010. I have received report from MICA Rodriguez and had the opportunity to ask questions and assume patient care. Pt awake and alert. Requested to use bedside commode. Linens changed. Addendum: 03/09/19 at 0650 by Geetha Henry RN Patient in room [facility] 3010. I have received report from MICA HERZOG and had the opportunity to ask questions and assume patient care. Pt awake and alert. Requested to use bedside commode. Linens changed.
[2019-03-09] MEDS: K and/or MAG REPLACEMENT MC SCH (08:00)
[2019-03-09] MEDS: vitamin D (cholecalciferol) 1,000 unit tablet PO SCH (08:03)
[2019-03-09] MEDS: pantoprazole 40mg Tablet.DR PO SCH (08:03)
[2019-03-09] MEDS: enoxaparin 40mg/0.4ml syringe SQ SCH (08:03)
[2019-03-09] MEDS: aspirin 81mg tablet.DR PO SCH (08:03)
[2019-03-09] MEDS: metoprolol succinate 25mg (24-HOUR) SR. Tablet PO SCH (08:04)
[2019-03-09] MEDS: predniSONE 20 mg tablet PO SCH (08:04)
[2019-03-09] MEDS: lactobacillus rhamnosus 10,000 MMU CELLS/CAPSULE PO SCH ×2 (08:04→20:14)
[2019-03-09] MEDS: gabapentin 100mg capsule PO SCH ×3 (08:04→20:14)
[2019-03-09] MEDS: buPROPion 75mg tablet PO SCH (08:04)
[2019-03-09] MEDS: lactose-reduced food (Ensure Enlive) - 237ml bottle PO SCH ×3 (08:04→18:00)
[2019-03-09] MEDS: LIPASE/PROTEASE/AMYLASE 4,200 unit CAPSULE.DR PO SCH ×3 (08:04→17:10)
[2019-03-09 11:00] VITALS: BP 93/55
[2019-03-09] MEDS: HYDROcodone/acetaminophen 10/325mg tab PO PRN ×3 (12:04→22:38)
[2019-03-09] MEDS: ipratropium/albuterol 3ml nebule NEB SCH ×3 (14:44→23:00)
[2019-03-09 15:00] VITALS: BP 100/62
--- NOTE | 2019-03-09 15:25 | NUR ---
Spoke w/ Moncho Jin RN in infection control and he clarified that the PPE "bunny suits" are per people's preference if people want more protection than an isolation gown, Contact precautions are in place.
[2019-03-09 18:00] VITALS: BP 98/58
--- NOTE | 2019-03-09 18:13 | NUR ---
Problems reprioritized. Patient report given, questions answered & plan of care reviewed with MICA Archibald.
--- NOTE | 2019-03-09 18:23 | NUR ---
Problems reprioritized. Patient report given, questions answered & plan of care reviewed with Cristela NINO.
--- NOTE | 2019-03-09 18:37 | NUR ---
Patient in room PCU 3010. I have received report from Pita NINO and had the opportunity to ask questions and assume patient care.
[2019-03-09] MEDS: sertraline 50mg tablet PO SCH (20:13)
[2019-03-09 22:00] VITALS: BP 104/68
[2019-03-10 03:00] VITALS: BP 96/63
[2019-03-10 06:00] VITALS: BP 103/69
[2019-03-10 06:10] LABS: BASOPHILS % (AUTO) 0.1 % (0-1); EOSINOPHILS # (AUTO) 0.2 X10'3 (0-0.9); EOSINOPHILS % (AUTO) 1.2 % (0-6); HEMATOCRIT 36.7 % (35.0-45.0); HEMOGLOBIN 11.7 g/dl (12.0-16.0); LYMPHOCYTES # (AUTO) 1.8 X10'3 (1.1-4.8); LYMPHOCYTES % (AUTO) 14.7 % (21-51); MEAN CORPUSCULAR HEMOGLOBIN 31.7 PG (27.0-31.0); MEAN CORPUSCULAR HGB CONC 31.9 g/dL (33.0-36.5); MEAN CORPUSCULAR VOLUME 99.3 FL (78-98); MEAN PLATELET VOLUME 8.6 FL (7.4-10.4); MONOCYTES # (AUTO) 1.1 X10'3 (0-0.9); MONOCYTES % (AUTO) 8.8 % (2-12); NEUTROPHILS # (AUTO) 9.1 X10'3 (1.8-7.7); NEUTROPHILS % (AUTO) 75.2 % (42-75); PLATELET COUNT 251 X10'3 (140-440); RED BLOOD COUNT 3.69 X10'6 (4.20-5.60); RED CELL DISTRIBUTION WIDTH 15.5 % (11.5-14.5); WHITE BLOOD COUNT 12.2 X10'3 (4.5-11.0)
--- NOTE | 2019-03-10 06:12 | NUR ---
Patient in room PCU 3010. I have received report from Cristela NINO and had the opportunity to ask questions and assume patient care. Pt is in bed resting, all needs met at this time, will continue to monitor.
[2019-03-10 06:14] LABS: ALBUMIN 3.1 G/DL (3.4-5.0); ANION GAP 3 (8-16); BLOOD UREA NITROGEN 29 MG/DL (7-18); BUN/CREATININE RATIO 54.7 (6.6-38.0); CALCIUM 9.1 MG/DL (8.5-10.1); CHLORIDE 102 MMOL/L (99-107); CREATININE 0.53 MG/DL (0.40-0.90); GLUCOSE 128 MG/DL (70-104); POTASSIUM 3.7 MMOL/L (3.5-5.1); SODIUM 141 MMOL/L (135-145); TOTAL CARBON DIOXIDE 36.2 MMOL/L (24-32); eGFR > 90 ML/MIN
--- NOTE | 2019-03-10 06:19 | NUR ---
Problems reprioritized. Patient report given, questions answered & plan of care reviewed with Pita NINO.
[2019-03-10] MEDS: ipratropium/albuterol 3ml nebule NEB SCH ×5 (07:00→23:11)
[2019-03-10] MEDS: K and/or MAG REPLACEMENT MC SCH (08:00)
[2019-03-10] MEDS: enoxaparin 40mg/0.4ml syringe SQ SCH (08:13)
[2019-03-10] MEDS: metoprolol succinate 25mg (24-HOUR) SR. Tablet PO SCH (08:13)
[2019-03-10] MEDS: aspirin 81mg tablet.DR PO SCH (08:13)
[2019-03-10] MEDS: buPROPion 75mg tablet PO SCH (08:13)
[2019-03-10] MEDS: LIPASE/PROTEASE/AMYLASE 4,200 unit CAPSULE.DR PO SCH ×3 (08:14→17:25)
[2019-03-10] MEDS: predniSONE 20 mg tablet PO SCH (08:14)
[2019-03-10] MEDS: pantoprazole 40mg Tablet.DR PO SCH (08:14)
[2019-03-10] MEDS: gabapentin 100mg capsule PO SCH ×3 (08:14→20:04)
[2019-03-10] MEDS: lactobacillus rhamnosus 10,000 MMU CELLS/CAPSULE PO SCH ×2 (08:14→20:04)
[2019-03-10] MEDS: vitamin D (cholecalciferol) 1,000 unit tablet PO SCH (08:14)
[2019-03-10] MEDS: lactose-reduced food (Ensure Enlive) - 237ml bottle PO SCH ×3 (08:17→18:00)
[2019-03-10] MEDS: HYDROcodone/acetaminophen 10/325mg tab PO PRN ×3 (08:30→21:28)
--- NOTE | 2019-03-10 09:39 | NUR ---
Reassessment: PO intake more stable with some 50% however mostly averaging 75% PO intake of meals and consistently with 100% PO intake of Ensure Enlive meeting nutrient needs. Per MD notes metabolic encephalopathy resolved however pt still with some confusion. LBM 03/10. Pt awaiting placement per MD notes. Will continue to follow. Recommend: 1. continue regular diet 2. send double protein 3. continue Ensure Enlive TID 4. routine bowel care 5. weight per rx Addendum: 03/10/19 at [address] Amended: Links added.
[2019-03-10 11:00] VITALS: BP 106/63
[2019-03-10 15:00] VITALS: BP 110/68
[2019-03-10 18:00] VITALS: BP 116/70
--- NOTE | 2019-03-10 18:12 | NUR ---
Patient in room PCU 3010. I have received report from Pita NINO and had the opportunity to ask questions and assume patient care.
--- NOTE | 2019-03-10 18:19 | NUR ---
Problems reprioritized. Patient report given, questions answered & plan of care reviewed with Cristela NINO.
[2019-03-10] MEDS: sertraline 50mg tablet PO SCH (20:04)
[2019-03-10 23:00] VITALS: BP 100/73
[2019-03-11] MEDS: HYDROcodone/acetaminophen 10/325mg tab PO PRN ×4 (03:24→17:56)
--- NOTE | 2019-03-11 06:12 | NUR ---
Problems reprioritized. Patient report given, questions answered & plan of care reviewed with Carlita NINO.
--- NOTE | 2019-03-11 06:12 | NUR ---
Patient in room PCU 3010. I have received report from MICA Archibald and had the opportunity to ask questions and assume patient care. Will continue to monitor patient.
[2019-03-11 07:00] VITALS: BP 105/65
[2019-03-11] MEDS: ipratropium/albuterol 3ml nebule NEB SCH ×5 (07:44→23:06)
[2019-03-11] MEDS: lactose-reduced food (Ensure Enlive) - 237ml bottle PO SCH ×3 (08:00→18:00)
[2019-03-11] MEDS: K and/or MAG REPLACEMENT MC SCH (08:00)
[2019-03-11] MEDS: LIPASE/PROTEASE/AMYLASE 4,200 unit CAPSULE.DR PO SCH ×3 (09:29→19:00)
[2019-03-11] MEDS: aspirin 81mg tablet.DR PO SCH (09:29)
[2019-03-11] MEDS: gabapentin 100mg capsule PO SCH ×3 (09:29→21:03)
[2019-03-11] MEDS: lactobacillus rhamnosus 10,000 MMU CELLS/CAPSULE PO SCH ×2 (09:29→21:03)
[2019-03-11] MEDS: predniSONE 20 mg tablet PO SCH (09:30)
[2019-03-11] MEDS: pantoprazole 40mg Tablet.DR PO SCH (09:30)
[2019-03-11] MEDS: metoprolol succinate 25mg (24-HOUR) SR. Tablet PO SCH (09:30)
[2019-03-11] MEDS: buPROPion 75mg tablet PO SCH (09:30)
[2019-03-11] MEDS: vitamin D (cholecalciferol) 1,000 unit tablet PO SCH (09:30)
[2019-03-11] MEDS: enoxaparin 40mg/0.4ml syringe SQ SCH (09:31)
[2019-03-11 11:00] VITALS: BP 95/54
--- NOTE | 2019-03-11 14:01 | NUR ---
PT MISSED 1100 BREATHING TX DUE TO RT BEING WITH CRITICAL PT IN UNIT Addendum: 03/11/19 at 1402 by Socorro Clark RT Amended: Links added.
[2019-03-11 15:00] VITALS: BP 117/67
--- NOTE | 2019-03-11 15:32 | NUR ---
pt missed 1500 breathing tx. chatting on the phone not wanting to be interrupted. 93% 1lpm NC 90 HR NAD Addendum: 03/11/19 at 1533 by Socorro Clark RT Amended: Links added.
[2019-03-11] MEDS: hydrOXYzine 25 MG tablet PO PRN (16:13)
[2019-03-11 18:00] VITALS: BP 102/74
--- NOTE | 2019-03-11 18:18 | NUR ---
Problems reprioritized. Patient report given, questions answered & plan of care reviewed with Kera NINO. Patient stable at transfer of care, resting comfortably in bed.
--- NOTE | 2019-03-11 18:20 | NUR ---
Patient in room PCU 3010. I have received report from Polly NINO and had the opportunity to ask questions and assume patient care.
[2019-03-11] MEDS: sertraline 50mg tablet PO SCH (21:03)
[2019-03-11 22:00] VITALS: BP 95/60
[2019-03-12 02:00] VITALS: BP 123/84
[2019-03-12 06:00] VITALS: BP 101/80
--- NOTE | 2019-03-12 06:05 | NUR ---
Patient in room PCU 3010. I have received report from MICA Marino and had the opportunity to ask questions and assume patient care.
--- NOTE | 2019-03-12 06:15 | NUR ---
Problems reprioritized. Patient report given, questions answered & plan of care reviewed with Selma NINO.
[2019-03-12] MEDS: predniSONE 20 mg tablet PO SCH (07:22)
[2019-03-12] MEDS: metoprolol succinate 25mg (24-HOUR) SR. Tablet PO SCH (07:22)
[2019-03-12] MEDS: gabapentin 100mg capsule PO SCH ×3 (07:22→21:42)
[2019-03-12] MEDS: buPROPion 75mg tablet PO SCH (07:22)
[2019-03-12] MEDS: lactobacillus rhamnosus 10,000 MMU CELLS/CAPSULE PO SCH ×2 (07:22→19:14)
[2019-03-12] MEDS: LIPASE/PROTEASE/AMYLASE 4,200 unit CAPSULE.DR PO SCH ×3 (07:22→19:14)
[2019-03-12] MEDS: pantoprazole 40mg Tablet.DR PO SCH (07:22)
[2019-03-12] MEDS: vitamin D (cholecalciferol) 1,000 unit tablet PO SCH (07:22)
[2019-03-12] MEDS: aspirin 81mg tablet.DR PO SCH (07:22)
[2019-03-12] MEDS: enoxaparin 40mg/0.4ml syringe SQ SCH (07:23)
[2019-03-12] MEDS: HYDROcodone/acetaminophen 10/325mg tab PO PRN ×3 (07:35→19:14)
[2019-03-12] MEDS: K and/or MAG REPLACEMENT MC SCH (08:00)
[2019-03-12] MEDS: lactose-reduced food (Ensure Enlive) - 237ml bottle PO SCH ×3 (08:00→19:16)
[2019-03-12] MEDS: ipratropium/albuterol 3ml nebule NEB SCH ×5 (08:28→22:46)
--- NOTE | 2019-03-12 13:53 | NUR ---
Nutrition consult: Spoke with pt regarding food preferences which were d/w dietary, see below. Pt provided RD contact information and encouraged to reach out regarding meal trays. Will continue to follow. Recommend: 1. continue regular [facility] soft diet with grind meat and chop rest per pt request 2. send double protein 3. Sausage with all breakfasts; Pepsi and lemon [place] soda BIDLD; cottage cheese BIDLD; double soft fruit/veggies TID; 2 butter and 2 salt TID 4. continue Ensure Enlive TID 5. routine bowel care 6. weight per rx Addendum: 03/12/19 at [address] Amended: Links added.
[2019-03-12 15:00] VITALS: BP 123/73
--- NOTE | 2019-03-12 18:21 | NUR ---
Problems reprioritized. Patient report given, questions answered & plan of care reviewed with Debbie.
--- NOTE | 2019-03-12 18:30 | NUR ---
Patient in room PCU 3010. I have received report from CUONG NINO and had the opportunity to ask questions and assume patient care.
[2019-03-12 19:00] VITALS: BP 98/76
[2019-03-12] MEDS: sertraline 50mg tablet PO SCH (21:42)
[2019-03-12] MEDS: hydrOXYzine 25 MG tablet PO PRN (21:50)
[2019-03-12 23:00] VITALS: BP 106/73
[2019-03-13] MEDS: HYDROcodone/acetaminophen 10/325mg tab PO PRN ×3 (01:25→20:16)
[2019-03-13 02:00] VITALS: BP 118/75
[2019-03-13 06:00] VITALS: BP 95/68
--- NOTE | 2019-03-13 06:00 | NUR ---
Patient in room PCU 3010. I have received report from MICA Armstrong and had the opportunity to ask questions and assume patient care.
--- NOTE | 2019-03-13 06:30 | NUR ---
Problems reprioritized. Patient report given, questions answered & plan of care reviewed with QUINCY NINO.
[2019-03-13] MEDS: ipratropium/albuterol 3ml nebule NEB SCH ×5 (07:00→23:00)
[2019-03-13] MEDS: buPROPion 75mg tablet PO SCH (07:59)
[2019-03-13] MEDS: aspirin 81mg tablet.DR PO SCH (08:00)
[2019-03-13] MEDS: gabapentin 100mg capsule PO SCH ×3 (08:00→20:16)
[2019-03-13] MEDS: K and/or MAG REPLACEMENT MC SCH (08:00)
[2019-03-13] MEDS: LIPASE/PROTEASE/AMYLASE 4,200 unit CAPSULE.DR PO SCH ×3 (08:00→19:52)
[2019-03-13] MEDS: pantoprazole 40mg Tablet.DR PO SCH (08:00)
[2019-03-13] MEDS: vitamin D (cholecalciferol) 1,000 unit tablet PO SCH (08:00)
[2019-03-13] MEDS: predniSONE 20 mg tablet PO SCH (08:00)
[2019-03-13] MEDS: lactobacillus rhamnosus 10,000 MMU CELLS/CAPSULE PO SCH ×2 (08:00→19:52)
[2019-03-13] MEDS: metoprolol succinate 25mg (24-HOUR) SR. Tablet PO SCH (08:00)
[2019-03-13] MEDS: lactose-reduced food (Ensure Enlive) - 237ml bottle PO SCH ×3 (08:00→18:00)
[2019-03-13] MEDS: enoxaparin 40mg/0.4ml syringe SQ SCH (08:01)
--- NOTE | 2019-03-13 09:12 | NUR ---
F/u: Pt reports ground veggies too hard still and requests pureed veggies, extra salt and butter packet TIDWM. Dietary notified. Addendum: 03/13/19 at [address] Amended: Links added. Addendum: 03/13/19 at [address] F/u: Pt reports ground veggies too hard still and requests pureed veggies, extra salt and butter packet TIDWM. Dietary notified. Pt PO 75-100% meals meeting needs/ LBM 03/11. Will continue to monitor. Recommend: 1. continue regular [facility] soft diet with grind meat and chop rest per pt request 2. send double protein 3. Sausage with all breakfasts; Pepsi and lemon [place] soda BIDLD; cottage cheese BIDLD; double soft fruit/pureed veggies TID; 2 butter and 2 salt TID 4. continue Ensure Enlive TID 5. routine bowel care 6. weight per rx
[2019-03-13 11:00] VITALS: BP 112/70
[2019-03-13] MEDS: Ivermectin 3mg tablet PO SCH (14:07)
[2019-03-13 15:00] VITALS: BP 123/72
[2019-03-13 18:00] VITALS: BP 102/60
--- NOTE | 2019-03-13 18:08 | NUR ---
Problems reprioritized. Patient report given, questions answered & plan of care reviewed with MICA Perez.
--- NOTE | 2019-03-13 18:41 | NUR ---
Patient in room PCU 3010. I have received report from Selma NINO and had the opportunity to ask questions and assume patient care.
[2019-03-13] MEDS: sertraline 50mg tablet PO SCH (20:16)
[2019-03-13 23:00] VITALS: BP 107/70
[2019-03-14] MEDS: HYDROcodone/acetaminophen 10/325mg tab PO PRN ×5 (00:56→23:14)
[2019-03-14 02:00] VITALS: BP 104/60
--- NOTE | 2019-03-14 05:48 | NUR ---
Orientee documentation: I have reviewed and agree with all interventions, assessments performed and documented by Kassie NINO. Orientee Medication Administration: For this medication-pass time frame, all medication were reviewed, dispensed, administered and documented per hospital policy by Kassie NINO.
[2019-03-14 06:00] VITALS: BP 103/67
--- NOTE | 2019-03-14 06:20 | NUR ---
Problems reprioritized. Patient report given, questions answered & plan of care reviewed with Geetha RN.
--- NOTE | 2019-03-14 06:36 | NUR ---
Patient in room PCU 3010. I have received report from Clarisse RN and MICA Perez and had the opportunity to ask questions and assume patient care. Pt is sleeping. Will continue to monitor.
[2019-03-14] MEDS: ipratropium/albuterol 3ml nebule NEB SCH ×5 (06:52→23:00)
[2019-03-14] MEDS: K and/or MAG REPLACEMENT MC SCH (08:00)
[2019-03-14] MEDS: buPROPion 75mg tablet PO SCH (08:11)
[2019-03-14] MEDS: vitamin D (cholecalciferol) 1,000 unit tablet PO SCH (08:12)
[2019-03-14] MEDS: aspirin 81mg tablet.DR PO SCH (08:13)
[2019-03-14] MEDS: enoxaparin 40mg/0.4ml syringe SQ SCH (08:13)
[2019-03-14] MEDS: gabapentin 100mg capsule PO SCH ×3 (08:13→20:05)
[2019-03-14] MEDS: predniSONE 20 mg tablet PO SCH (08:13)
[2019-03-14] MEDS: pantoprazole 40mg Tablet.DR PO SCH (08:13)
[2019-03-14] MEDS: metoprolol succinate 25mg (24-HOUR) SR. Tablet PO SCH (08:13)
[2019-03-14] MEDS: lactobacillus rhamnosus 10,000 MMU CELLS/CAPSULE PO SCH ×2 (08:13→19:01)
[2019-03-14] MEDS: lactose-reduced food (Ensure Enlive) - 237ml bottle PO SCH ×3 (08:14→18:00)
[2019-03-14] MEDS: LIPASE/PROTEASE/AMYLASE 4,200 unit CAPSULE.DR PO SCH ×3 (08:40→19:01)
--- NOTE | 2019-03-14 09:48 | NUR ---
Sent to Dr West: PAGER ID: [phone] MESSAGE: RE: Gloria Sarkar [phone]. Pt doesn't have labs since 03-10; however, we are just waiting on placement for discharge. -Geetha [phone]
[2019-03-14 11:00] VITALS: BP 90/53
[2019-03-14 13:22] LABS: BASOPHILS % (AUTO) 0.4 % (0-1); EOSINOPHILS # (AUTO) 0.1 X10'3 (0-0.9); EOSINOPHILS % (AUTO) 0.5 % (0-6); HEMATOCRIT 36.1 % (35.0-45.0); LYMPHOCYTES # (AUTO) 0.6 X10'3 (1.1-4.8); LYMPHOCYTES % (AUTO) 5.8 % (21-51); MEAN CORPUSCULAR HEMOGLOBIN 33.5 PG (27.0-31.0); MEAN CORPUSCULAR HGB CONC 33.2 g/dL (33.0-36.5); MEAN CORPUSCULAR VOLUME 100.9 FL (78-98); MEAN PLATELET VOLUME 8.2 FL (7.4-10.4); MONOCYTES # (AUTO) 0.4 X10'3 (0-0.9); MONOCYTES % (AUTO) 4.3 % (2-12); NEUTROPHILS # (AUTO) 8.7 X10'3 (1.8-7.7); PLATELET COUNT 288 X10'3 (140-440); RED BLOOD COUNT 3.57 X10'6 (4.20-5.60); RED CELL DISTRIBUTION WIDTH 15.9 % (11.5-14.5); WHITE BLOOD COUNT 9.8 X10'3 (4.5-11.0)
[2019-03-14 13:28] LABS: ALBUMIN 3.1 G/DL (3.4-5.0); ANION GAP 5 (8-16); BLOOD UREA NITROGEN 30 MG/DL (7-18); BUN/CREATININE RATIO 47.6 (6.6-38.0); CALCIUM 8.4 MG/DL (8.5-10.1); CHLORIDE 97 MMOL/L (99-107); CREATININE 0.63 MG/DL (0.40-0.90); GLUCOSE 238 MG/DL (70-104); POTASSIUM 4.7 MMOL/L (3.5-5.1); SODIUM 138 MMOL/L (135-145); TOTAL CARBON DIOXIDE 36.5 MMOL/L (24-32); eGFR > 90 ML/MIN
[2019-03-14] MEDS: hydrOXYzine 25 MG tablet PO PRN (13:35)
[2019-03-14 15:00] VITALS: BP 111/79
[2019-03-14 18:00] VITALS: BP 119/70
--- NOTE | 2019-03-14 18:05 | NUR ---
Patient in room PCU 3010. I have received report from Geetha NINO and had the opportunity to ask questions and assume patient care.
--- NOTE | 2019-03-14 18:14 | NUR ---
Problems reprioritized. Patient report given, questions answered & plan of care reviewed with MICA Perez and MICA Robb.
[2019-03-14] MEDS: sertraline 50mg tablet PO SCH (20:05)
[2019-03-14 22:00] VITALS: BP 97/57
[2019-03-15 02:00] VITALS: BP 118/70
[2019-03-15] MEDS: HYDROcodone/acetaminophen 10/325mg tab PO PRN ×3 (03:35→19:17)
[2019-03-15 06:00] VITALS: BP 92/67
--- NOTE | 2019-03-15 06:00 | NUR ---
Patient in room PCU 3010. I have received report from Ana NINO/Kassie NINO and had the opportunity to ask questions and assume patient care.
--- NOTE | 2019-03-15 06:22 | NUR ---
Problems reprioritized. Patient report given, questions answered & plan of care reviewed with Jolly NINO.
[2019-03-15] MEDS: ipratropium/albuterol 3ml nebule NEB SCH ×5 (07:00→22:50)
[2019-03-15] MEDS: K and/or MAG REPLACEMENT MC SCH (08:00)
[2019-03-15] MEDS: lactose-reduced food (Ensure Enlive) - 237ml bottle PO SCH ×3 (08:00→18:00)
[2019-03-15] MEDS: vitamin D (cholecalciferol) 1,000 unit tablet PO SCH (08:55)
[2019-03-15] MEDS: pantoprazole 40mg Tablet.DR PO SCH (08:55)
[2019-03-15] MEDS: gabapentin 100mg capsule PO SCH ×3 (08:55→20:37)
[2019-03-15] MEDS: prednisone 10mg tablet PO SCH (08:55)
[2019-03-15] MEDS: aspirin 81mg tablet.DR PO SCH (08:55)
[2019-03-15] MEDS: lactobacillus rhamnosus 10,000 MMU CELLS/CAPSULE PO SCH ×2 (08:55→19:17)
[2019-03-15] MEDS: buPROPion 75mg tablet PO SCH (08:56)
[2019-03-15] MEDS: LIPASE/PROTEASE/AMYLASE 4,200 unit CAPSULE.DR PO SCH ×3 (08:56→19:17)
[2019-03-15] MEDS: enoxaparin 40mg/0.4ml syringe SQ SCH (08:56)
[2019-03-15] MEDS: metoprolol succinate 25mg (24-HOUR) SR. Tablet PO SCH (08:57)
[2019-03-15 11:00] VITALS: BP 101/65
[2019-03-15] MEDS ORDERED: Permethrin 1% 59ml topical rinse TP ONE (11:30)
[2019-03-15] MEDS ORDERED: Permethrin Cream 60gm TP ONE (11:30)
[2019-03-15 15:00] VITALS: BP 123/79
--- NOTE | 2019-03-15 17:15 | NUR ---
Head lice shampoo treatment complete. Hair combed with nit comb.
[2019-03-15 18:00] VITALS: BP 111/73
--- NOTE | 2019-03-15 18:00 | NUR ---
Problems reprioritized. Patient report given, questions answered & plan of care reviewed with Ana NINO/Kassie NINO.
--- NOTE | 2019-03-15 18:14 | NUR ---
Patient in room PCU 3010. I have received report from Jolly NINO and had the opportunity to ask questions and assume patient care.
[2019-03-15] MEDS: sertraline 50mg tablet PO SCH (20:37)
[2019-03-15 22:00] VITALS: BP 102/54
[2019-03-16] MEDS: HYDROcodone/acetaminophen 10/325mg tab PO PRN ×4 (01:13→20:11)
[2019-03-16 02:00] VITALS: BP 104/61
--- NOTE | 2019-03-16 06:29 | NUR ---
Problems reprioritized. Patient report given, questions answered & plan of care reviewed with Pat RN.
[2019-03-16 06:30] VITALS: BP 114/69
[2019-03-16] MEDS: ipratropium/albuterol 3ml nebule NEB SCH ×5 (07:31→23:35)
[2019-03-16] MEDS: lactose-reduced food (Ensure Enlive) - 237ml bottle PO SCH ×3 (08:00→18:00)
[2019-03-16] MEDS: K and/or MAG REPLACEMENT MC SCH (08:00)
[2019-03-16] MEDS: LIPASE/PROTEASE/AMYLASE 4,200 unit CAPSULE.DR PO SCH ×3 (09:00→17:39)
[2019-03-16] MEDS: metoprolol succinate 25mg (24-HOUR) SR. Tablet PO SCH (09:01)
[2019-03-16] MEDS: gabapentin 100mg capsule PO SCH ×3 (09:01→20:09)
[2019-03-16] MEDS: prednisone 10mg tablet PO SCH (09:04)
[2019-03-16] MEDS: aspirin 81mg tablet.DR PO SCH (09:05)
[2019-03-16] MEDS: lactobacillus rhamnosus 10,000 MMU CELLS/CAPSULE PO SCH ×2 (09:06→20:10)
[2019-03-16] MEDS: pantoprazole 40mg Tablet.DR PO SCH (09:06)
[2019-03-16] MEDS: buPROPion 75mg tablet PO SCH (09:07)
[2019-03-16] MEDS: vitamin D (cholecalciferol) 1,000 unit tablet PO SCH (09:07)
[2019-03-16] MEDS: enoxaparin 40mg/0.4ml syringe SQ SCH (09:08)
--- NOTE | 2019-03-16 09:45 | NUR ---
Pt requesting additional cheese w/ fruit at dinner to use as evening snack; dietary notified OK by RD given malnutrition and great appetite. Pt PO 100% all meals receiving additional proteins and also receiving second trays typically daily per pt request r/t voracious appetite. Meeting nutrition needs. LBM 03/15. No nutrition concerns at this time. Will continue to monitor. Recommend: 1. continue regular [facility] soft diet with grind meat and chop rest per pt request 2. send double protein 3. Sausage with all breakfasts; Pepsi and lemon [place] soda BIDLD; cottage cheese BIDLD; double soft fruit/pureed veggies TID; 2 butter and 2 salt TID 4. continue Ensure Enlive TID; cheese and fruit w/ dinner for late night snack 5. routine bowel care 6. weight per rx Addendum: 03/16/19 at [address] Amended: Links added.
[2019-03-16 11:00] VITALS: BP 104/67
[2019-03-16 15:00] VITALS: BP 104/67
[2019-03-16 18:00] VITALS: BP 101/65
--- NOTE | 2019-03-16 18:15 | NUR ---
Patient in room PCU 3014. I have received report from Su RN and had the opportunity to ask questions and assume patient care.
[2019-03-16] MEDS: hydrOXYzine 25 MG tablet PO PRN (20:10)
[2019-03-16] MEDS: sertraline 50mg tablet PO SCH (20:10)
[2019-03-16 22:00] VITALS: BP 130/78
[2019-03-17] MEDS: HYDROcodone/acetaminophen 10/325mg tab PO PRN ×4 (01:10→16:44)
[2019-03-17 02:00] VITALS: BP 126/77
[2019-03-17 06:00] VITALS: BP 102/69
--- NOTE | 2019-03-17 06:23 | NUR ---
Problems reprioritized. Patient report given, questions answered & plan of care reviewed with Jesu NINO.
--- NOTE | 2019-03-17 06:45 | NUR ---
Patient in room PCU 3014. I have received report from MICA Craft and had the opportunity to ask questions and assume patient care.
[2019-03-17] MEDS: K and/or MAG REPLACEMENT MC SCH (08:00)
[2019-03-17] MEDS: ipratropium/albuterol 3ml nebule NEB SCH ×4 (08:06→20:01)
[2019-03-17] MEDS: gabapentin 100mg capsule PO SCH ×3 (08:30→21:01)
[2019-03-17] MEDS: lactobacillus rhamnosus 10,000 MMU CELLS/CAPSULE PO SCH ×2 (08:30→21:02)
[2019-03-17] MEDS: buPROPion 75mg tablet PO SCH (08:30)
[2019-03-17] MEDS: aspirin 81mg tablet.DR PO SCH (08:30)
[2019-03-17] MEDS: metoprolol succinate 25mg (24-HOUR) SR. Tablet PO SCH (08:30)
[2019-03-17] MEDS: vitamin D (cholecalciferol) 1,000 unit tablet PO SCH (08:30)
[2019-03-17] MEDS: prednisone 10mg tablet PO SCH (08:30)
[2019-03-17] MEDS: pantoprazole 40mg Tablet.DR PO SCH (08:30)
[2019-03-17] MEDS: enoxaparin 40mg/0.4ml syringe SQ SCH (08:31)
[2019-03-17] MEDS: LIPASE/PROTEASE/AMYLASE 4,200 unit CAPSULE.DR PO SCH ×3 (08:38→17:23)
[2019-03-17] MEDS: lactose-reduced food (Ensure Enlive) - 237ml bottle PO SCH ×3 (08:38→17:23)
[2019-03-17] MEDS: hydrOXYzine 25 MG tablet PO PRN ×2 (08:45→16:44)
--- NOTE | 2019-03-17 09:30 | NUR ---
MD bryant at bedside no new orders
[2019-03-17 11:00] VITALS: BP 109/84
--- NOTE | 2019-03-17 14:46 | NUR ---
pt resting watching TV
[2019-03-17 15:00] VITALS: BP 97/65
--- NOTE | 2019-03-17 16:54 | NUR ---
pt having anxiety PRN given
[2019-03-17 18:00] VITALS: BP 122/80
--- NOTE | 2019-03-17 18:59 | NUR ---
Patient in room PCU 3014. I have received report from MICA Murray and had the opportunity to ask questions and assume patient care.
[2019-03-17] MEDS: sertraline 50mg tablet PO SCH (21:01)
[2019-03-17 22:00] VITALS: BP 113/74
[2019-03-18] MEDS: HYDROcodone/acetaminophen 10/325mg tab PO PRN ×5 (00:55→23:12)
[2019-03-18 02:00] VITALS: BP 102/71
[2019-03-18 06:00] VITALS: BP 107/76
--- NOTE | 2019-03-18 06:00 | NUR ---
Patient in room PCU 3014. I have received report from MICA Stephenson and had the opportunity to ask questions and assume patient care.
--- NOTE | 2019-03-18 06:23 | NUR ---
Problems reprioritized. Patient report given, questions answered & plan of care reviewed with MICA Rene.
[2019-03-18] MEDS: ipratropium/albuterol 3ml nebule NEB SCH ×6 (07:38→23:30)
[2019-03-18] MEDS: aspirin 81mg tablet.DR PO SCH (07:40)
[2019-03-18] MEDS: prednisone 10mg tablet PO SCH (07:40)
[2019-03-18] MEDS: enoxaparin 40mg/0.4ml syringe SQ SCH (07:40)
[2019-03-18] MEDS: buPROPion 75mg tablet PO SCH (07:40)
[2019-03-18] MEDS: pantoprazole 40mg Tablet.DR PO SCH (07:40)
[2019-03-18] MEDS: lactobacillus rhamnosus 10,000 MMU CELLS/CAPSULE PO SCH ×2 (07:40→20:14)
[2019-03-18] MEDS: metoprolol succinate 25mg (24-HOUR) SR. Tablet PO SCH (07:41)
[2019-03-18] MEDS: vitamin D (cholecalciferol) 1,000 unit tablet PO SCH (07:41)
[2019-03-18] MEDS: gabapentin 100mg capsule PO SCH ×3 (07:41→20:15)
[2019-03-18] MEDS: LIPASE/PROTEASE/AMYLASE 4,200 unit CAPSULE.DR PO SCH ×3 (07:41→20:26)
[2019-03-18] MEDS: lactose-reduced food (Ensure Enlive) - 237ml bottle PO SCH ×3 (08:00→18:00)
[2019-03-18] MEDS: K and/or MAG REPLACEMENT MC SCH (08:00)
[2019-03-18 11:00] VITALS: BP 104/57
[2019-03-18 15:00] VITALS: BP 113/69
[2019-03-18 18:00] VITALS: BP 107/67
--- NOTE | 2019-03-18 18:14 | NUR ---
Problems reprioritized. Patient report given, questions answered & plan of care reviewed with MICA Parada.
--- NOTE | 2019-03-18 18:22 | NUR ---
Patient in room PCU 3014. I have received report from MICA Rene and had the opportunity to ask questions and assume patient care.
[2019-03-18] MEDS: sertraline 50mg tablet PO SCH (20:14)
[2019-03-18 22:00] VITALS: BP 102/59
[2019-03-19 02:00] VITALS: BP 104/63
[2019-03-19] MEDS: HYDROcodone/acetaminophen 10/325mg tab PO PRN ×5 (03:13→23:01)
--- NOTE | 2019-03-19 05:16 | NUR ---
Student Medication Administration: For this medication-pass time frame, all medication were reviewed, dispensed, administered and documented per hospital policy by Jaimie LENZ. Student documentation: I have reviewed and agree with all interventions, assessments performed and documented by Jaimie LENZ.
--- NOTE | 2019-03-19 05:16 | NUR ---
Orientee Medication Administration: For this medication-pass time frame, all medication were reviewed, dispensed, administered and documented per hospital policy by Summer NINO. Orientee documentation: I have reviewed and agree with all interventions, assessments performed and documented by Summer NINO.
[2019-03-19 06:00] VITALS: BP 105/70
--- NOTE | 2019-03-19 06:17 | NUR ---
Problems reprioritized. Patient report given, questions answered & plan of care reviewed with MICA Rene.
--- NOTE | 2019-03-19 06:31 | NUR ---
Patient in room PCU 3014. I have received report from MICA Parada and had the opportunity to ask questions and assume patient care.
[2019-03-19] MEDS: ipratropium/albuterol 3ml nebule NEB SCH ×5 (06:59→23:30)
[2019-03-19] MEDS: LIPASE/PROTEASE/AMYLASE 4,200 unit CAPSULE.DR PO SCH ×3 (07:20→20:48)
[2019-03-19] MEDS: vitamin D (cholecalciferol) 1,000 unit tablet PO SCH (07:20)
[2019-03-19] MEDS: buPROPion 75mg tablet PO SCH (07:20)
[2019-03-19] MEDS: gabapentin 100mg capsule PO SCH ×3 (07:20→20:49)
[2019-03-19] MEDS: aspirin 81mg tablet.DR PO SCH (07:20)
[2019-03-19] MEDS: prednisone 10mg tablet PO SCH (07:20)
[2019-03-19] MEDS: lactobacillus rhamnosus 10,000 MMU CELLS/CAPSULE PO SCH ×2 (07:21→20:48)
[2019-03-19] MEDS: enoxaparin 40mg/0.4ml syringe SQ SCH (07:22)
[2019-03-19] MEDS: pantoprazole 40mg Tablet.DR PO SCH (07:22)
[2019-03-19] MEDS: metoprolol succinate 25mg (24-HOUR) SR. Tablet PO SCH (07:22)
[2019-03-19] MEDS: K and/or MAG REPLACEMENT MC SCH (08:00)
[2019-03-19] MEDS: lactose-reduced food (Ensure Enlive) - 237ml bottle PO SCH ×3 (08:00→18:00)
[2019-03-19 09:28] LABS: ALANINE AMINOTRANSFERASE 71 U/L (12-78); ALBUMIN 3.4 G/DL (3.4-5.0); ALBUMIN/GLOBULIN RATIO 1.1 (1.1-1.5); ALKALINE PHOSPHATASE 104 IU/L (46-116); ANION GAP 6 (8-16); ASPARTATE AMINO TRANSFERASE 36 U/L (10-37); BILIRUBIN,TOTAL 0.3 MG/DL (0.1-1.0); BLOOD UREA NITROGEN 32 MG/DL (7-18); BUN/CREATININE RATIO 59.3 (6.6-38.0); CALCIUM 8.9 MG/DL (8.5-10.1); CHLORIDE 97 MMOL/L (99-107); CREATININE 0.54 MG/DL (0.40-0.90); GLUCOSE 180 MG/DL (70-104); POTASSIUM 4.3 MMOL/L (3.5-5.1); SODIUM 138 MMOL/L (135-145); TOTAL CARBON DIOXIDE 35.5 MMOL/L (24-32); TOTAL PROTEIN 6.6 G/DL (6.4-8.2); eGFR > 90 ML/MIN
[2019-03-19 11:00] VITALS: BP 92/58
[2019-03-19] MEDS ORDERED: bisacodyl 10mg suppository rectal RC PRN (14:20)
[2019-03-19] MEDS ORDERED: bisacodyl 5mg tablet.DR PO PRN (14:20)
[2019-03-19 15:00] VITALS: BP 99/54
--- NOTE | 2019-03-19 18:15 | NUR ---
Problems reprioritized. Patient report given, questions answered & plan of care reviewed with MICA Parada .
[2019-03-19 19:00] VITALS: BP 99/59
[2019-03-19] MEDS: sertraline 50mg tablet PO SCH (20:48)
[2019-03-19] MEDS: docusate sod 100mg capsule PO SCH (20:48)
[2019-03-19 22:00] VITALS: BP 110/69
[2019-03-20 02:00] VITALS: BP 105/63
[2019-03-20] MEDS: HYDROcodone/acetaminophen 10/325mg tab PO PRN ×4 (03:12→23:42)
--- NOTE | 2019-03-20 06:35 | NUR ---
Patient in room PCU 3014. I have received report from Karma NINO and had the opportunity to ask questions and assume patient care. Patient awake in bed with no complaints at this time. All immediate needs met.
--- NOTE | 2019-03-20 06:35 | NUR ---
Problems reprioritized. Patient report given, questions answered & plan of care reviewed with Clara NINO & Lani RN.
[2019-03-20 07:00] VITALS: BP 111/54
[2019-03-20] MEDS: ipratropium/albuterol 3ml nebule NEB SCH ×5 (07:11→23:31)
[2019-03-20] MEDS: lactose-reduced food (Ensure Enlive) - 237ml bottle PO SCH ×3 (08:00→18:00)
[2019-03-20] MEDS: K and/or MAG REPLACEMENT MC SCH (08:00)
[2019-03-20] MEDS: aspirin 81mg tablet.DR PO SCH (08:06)
[2019-03-20] MEDS: LIPASE/PROTEASE/AMYLASE 4,200 unit CAPSULE.DR PO SCH ×3 (08:06→19:33)
[2019-03-20] MEDS: docusate sod 100mg capsule PO SCH ×2 (08:06→19:34)
[2019-03-20] MEDS: pantoprazole 40mg Tablet.DR PO SCH (08:06)
[2019-03-20] MEDS: gabapentin 100mg capsule PO SCH ×3 (08:06→21:29)
[2019-03-20] MEDS: prednisone 10mg tablet PO SCH (08:06)
[2019-03-20] MEDS: buPROPion 75mg tablet PO SCH (08:06)
[2019-03-20] MEDS: vitamin D (cholecalciferol) 1,000 unit tablet PO SCH (08:06)
[2019-03-20] MEDS: lactobacillus rhamnosus 10,000 MMU CELLS/CAPSULE PO SCH ×2 (08:06→19:34)
[2019-03-20] MEDS: metoprolol succinate 25mg (24-HOUR) SR. Tablet PO SCH (08:06)
[2019-03-20] MEDS: enoxaparin 40mg/0.4ml syringe SQ SCH (08:08)
--- NOTE | 2019-03-20 10:30 | NUR ---
Offered to ambulate with patient and she refused. Complained of back pain.
[2019-03-20 11:00] VITALS: BP 108/51
[2019-03-20 15:00] VITALS: BP 105/68
--- NOTE | 2019-03-20 16:54 | NUR ---
Offered to ambulate with patient, patient refused. Stated she was too tired from shower, and she will walk later.
--- NOTE | 2019-03-20 18:42 | NUR ---
Orientee documentation: I have reviewed and agree with all interventions, assessments performed and documented by MICA Garibay. Orientee Medication Administration: For this medication-pass time frame, all medication were reviewed, dispensed, administered and documented per hospital policy by Lani NINO.
--- NOTE | 2019-03-20 18:52 | NUR ---
Problems reprioritized. Patient report given, questions answered & plan of care reviewed with Emma NINO. Patient stable at transfer of care.
[2019-03-20 19:00] VITALS: BP 109/71
[2019-03-20] MEDS: sertraline 50mg tablet PO SCH (21:28)
[2019-03-20 23:00] VITALS: BP 114/71
--- NOTE | 2019-03-21 01:00 | NUR ---
Patient in room PCU 3014. I have received report from Emma NINO and had the opportunity to ask questions and assume patient care.
[2019-03-21 03:00] VITALS: BP 108/70
[2019-03-21] MEDS: HYDROcodone/acetaminophen 5mg/325mg tablet PO PRN ×3 (05:59→22:20)
--- NOTE | 2019-03-21 06:15 | NUR ---
Problems reprioritized. Patient report given, questions answered & plan of care reviewed with Clara NINO and Lani RN.
--- NOTE | 2019-03-21 06:35 | NUR ---
Patient in room PCU 3014. I have received report from Luana NINO and had the opportunity to ask questions and assume patient care. Patient asleep in bed. In no acute distress. Will continue to monitor.
[2019-03-21 07:00] VITALS: BP 116/63
[2019-03-21] MEDS: ipratropium/albuterol 3ml nebule NEB SCH ×5 (07:18→23:16)
[2019-03-21] MEDS: lactose-reduced food (Ensure Enlive) - 237ml bottle PO SCH ×3 (08:00→18:00)
[2019-03-21] MEDS: K and/or MAG REPLACEMENT MC SCH (08:00)
[2019-03-21] MEDS: lactobacillus rhamnosus 10,000 MMU CELLS/CAPSULE PO SCH ×2 (08:31→19:56)
[2019-03-21] MEDS: docusate sod 100mg capsule PO SCH ×2 (08:32→19:55)
[2019-03-21] MEDS: vitamin D (cholecalciferol) 1,000 unit tablet PO SCH (08:32)
[2019-03-21] MEDS: metoprolol succinate 25mg (24-HOUR) SR. Tablet PO SCH (08:32)
[2019-03-21] MEDS: pantoprazole 40mg Tablet.DR PO SCH (08:32)
[2019-03-21] MEDS: buPROPion 75mg tablet PO SCH (08:32)
[2019-03-21] MEDS: gabapentin 100mg capsule PO SCH ×3 (08:32→20:00)
[2019-03-21] MEDS: prednisone 10mg tablet PO SCH (08:33)
[2019-03-21] MEDS: enoxaparin 40mg/0.4ml syringe SQ SCH (08:34)
[2019-03-21] MEDS: aspirin 81mg tablet.DR PO SCH (08:40)
[2019-03-21] MEDS: LIPASE/PROTEASE/AMYLASE 4,200 unit CAPSULE.DR PO SCH ×3 (08:40→19:55)
[2019-03-21 15:00] VITALS: BP 106/62
[2019-03-21] MEDS: HYDROcodone/acetaminophen 10/325mg tab PO PRN (16:52)
--- NOTE | 2019-03-21 18:15 | NUR ---
Orientee documentation: I have reviewed and agree with all interventions, assessments performed and documented by MICA Garibay. Orientee Medication Administration: For this medication-pass time frame, all medication were reviewed, dispensed, administered and documented per hospital policy by MICA Garibay.
[2019-03-21 19:00] VITALS: BP 106/67
[2019-03-21] MEDS: sertraline 50mg tablet PO SCH (20:00)
[2019-03-21 23:00] VITALS: BP 122/73
[2019-03-22] VITALS (7 sets, daily range): BP systolic 97–121; BP diastolic 55–69
[2019-03-22] MEDS: HYDROcodone/acetaminophen 5mg/325mg tablet PO PRN ×4 (05:30→21:30)
--- NOTE | 2019-03-22 06:10 | NUR ---
Patient in room PCU 3014. I have received report from Luana NINO and had the opportunity to ask questions and assume patient care.
--- NOTE | 2019-03-22 06:29 | NUR ---
Problems reprioritized. Patient report given, questions answered & plan of care reviewed with Nathaniel NINO and Lana NINO.
--- NOTE | 2019-03-22 07:03 | NUR ---
Patient in room PCU 3014. I have received report from MICA Craft and had the opportunity to ask questions and assume patient care.
[2019-03-22] MEDS: ipratropium/albuterol 3ml nebule NEB SCH ×5 (07:18→22:40)
[2019-03-22] MEDS: prednisone 10mg tablet PO SCH (07:44)
[2019-03-22] MEDS: metoprolol succinate 25mg (24-HOUR) SR. Tablet PO SCH (07:44)
[2019-03-22] MEDS: docusate sod 100mg capsule PO SCH ×2 (07:44→21:28)
[2019-03-22] MEDS: LIPASE/PROTEASE/AMYLASE 4,200 unit CAPSULE.DR PO SCH ×3 (07:45→17:57)
[2019-03-22] MEDS: pantoprazole 40mg Tablet.DR PO SCH (07:45)
[2019-03-22] MEDS: vitamin D (cholecalciferol) 1,000 unit tablet PO SCH (07:45)
[2019-03-22] MEDS: lactobacillus rhamnosus 10,000 MMU CELLS/CAPSULE PO SCH ×2 (07:45→21:26)
[2019-03-22] MEDS: gabapentin 100mg capsule PO SCH ×3 (07:45→21:29)
[2019-03-22] MEDS: aspirin 81mg tablet.DR PO SCH (07:45)
[2019-03-22] MEDS: buPROPion 75mg tablet PO SCH (07:45)
[2019-03-22] MEDS: enoxaparin 40mg/0.4ml syringe SQ SCH (07:48)
[2019-03-22] MEDS: K and/or MAG REPLACEMENT MC SCH (08:00)
[2019-03-22] MEDS: lactose-reduced food (Ensure Enlive) - 237ml bottle PO SCH ×3 (08:22→17:58)
--- NOTE | 2019-03-22 12:54 | NUR ---
reassessment: Pt PO 100% meals/ONS w/ amazing appetite meeting needs. LBM 03/21 first moderate BM since 03/15. MCV 100.9 w/ MVI and Neprhovite to start tomorrow per EMR. No nutrition concerns at this time. Will continue to monitor. Recommend: 1. continue regular [facility] soft diet with grind meat, soft fruit, pureed veggies, regular soups per pt request 2. send double protein 3. Sausage with all breakfasts; Pepsi and lemon [place] soda BIDLD; cottage cheese BIDLD; double soft fruit/pureed veggies TID; 2 butter and 2 salt TID 4. continue Ensure Enlive TID; cheese and fruit w/ dinner for late night snack 5. routine bowel care 6. weight per rx Addendum: 03/22/19 at [address] Amended: Links added.
--- NOTE | 2019-03-22 13:36 | NUR ---
F/u: Pt requesting no longer ground meats since difficult to spread butter on foods. ANSON d/w RN since pt on mechanical soft diet and receiving ground prior. RN reports pt is able to chop meats herself and RN's can help chop food as necessary. Dietary notified; no longer pre-cutting meats but will continue pureed veggies. Addendum: 03/22/19 at [address] Amended: Links added.
--- NOTE | 2019-03-22 18:01 | NUR ---
I have checked Lana RN (orientee) charting and I agree wit it
--- NOTE | 2019-03-22 18:10 | NUR ---
Problems reprioritized. Patient report given, questions answered & plan of care reviewed with Luana NINO.
--- NOTE | 2019-03-22 18:15 | NUR ---
Patient in room PCU 3014. I have received report from Lana NINO and Nathaniel RN and had the opportunity to ask questions and assume patient care.
--- NOTE | 2019-03-22 18:23 | NUR ---
Problems reprioritized. Patient report given, questions answered & plan of care reviewed with MICA Craft.
[2019-03-22] MEDS: polyethylene glycol 3350 17gm powd pack PO SCH (21:25)
[2019-03-22] MEDS: sertraline 50mg tablet PO SCH (21:29)
[2019-03-23] MEDS: HYDROcodone/acetaminophen 5mg/325mg tablet PO PRN ×4 (01:56→17:59)
[2019-03-23 02:00] VITALS: BP 98/59
[2019-03-23 06:00] VITALS: BP 106/71
--- NOTE | 2019-03-23 06:00 | NUR ---
Patient in room PCU 3014. I have received report from Luana NINO and had the opportunity to ask questions and assume patient care.
--- NOTE | 2019-03-23 06:17 | NUR ---
Problems reprioritized. Patient report given, questions answered & plan of care reviewed with Nathaniel NINO.
[2019-03-23] MEDS: ipratropium/albuterol 3ml nebule NEB SCH ×5 (07:19→23:49)
[2019-03-23] MEDS: lactose-reduced food (Ensure Enlive) - 237ml bottle PO SCH ×3 (08:00→13:32)
[2019-03-23] MEDS: K and/or MAG REPLACEMENT MC SCH (08:00)
[2019-03-23] MEDS: enoxaparin 40mg/0.4ml syringe SQ SCH (08:01)
[2019-03-23] MEDS: pantoprazole 40mg Tablet.DR PO SCH (08:02)
[2019-03-23] MEDS: LIPASE/PROTEASE/AMYLASE 4,200 unit CAPSULE.DR PO SCH ×3 (08:02→18:00)
[2019-03-23] MEDS: lactobacillus rhamnosus 10,000 MMU CELLS/CAPSULE PO SCH ×2 (08:02→20:07)
[2019-03-23] MEDS: buPROPion 75mg tablet PO SCH (08:02)
[2019-03-23] MEDS: multivitamins, therapeutics tablet PO SCH (08:02)
[2019-03-23] MEDS: gabapentin 100mg capsule PO SCH ×3 (08:02→20:07)
[2019-03-23] MEDS: docusate sod 100mg capsule PO SCH ×2 (08:02→20:07)
[2019-03-23] MEDS: prednisone 10mg tablet PO SCH (08:03)
[2019-03-23] MEDS: aspirin 81mg tablet.DR PO SCH (08:03)
[2019-03-23] MEDS: vitamin D (cholecalciferol) 1,000 unit tablet PO SCH (08:03)
[2019-03-23] MEDS: folic acid/vitamin B complex w/vitamin C 0.8mg tablet PO SCH (08:03)
--- NOTE | 2019-03-23 08:35 | NUR ---
Pt's morning BP 98/58. Notified Dr. Morales that I held morning steiner of metoprolol 25mg. Dr. Morales ordered new dose of Metoprolol 12.5mg. New 12.5mg dose of metoprolol given to Pt.
[2019-03-23] MEDS: metoprolol succinate 25mg (24-HOUR) SR. Tablet PO SCH (09:25)
[2019-03-23 11:00] VITALS: BP 106/59
[2019-03-23] MEDS ORDERED: magnesium citrate 296ml oral solution PO ONE (14:40)
[2019-03-23 18:00] VITALS: BP 166/61
--- NOTE | 2019-03-23 18:00 | NUR ---
Problems reprioritized. Patient report given, questions answered & plan of care reviewed with Rene NINO.
--- NOTE | 2019-03-23 18:37 | NUR ---
Patient in room PCU 3014. I have received report from MICA Armstrong and had the opportunity to ask questions and assume patient care.
[2019-03-23] MEDS: polyethylene glycol 3350 17gm powd pack PO SCH (20:07)
[2019-03-23] MEDS: sertraline 50mg tablet PO SCH (20:07)
[2019-03-23] MEDS: HYDROcodone/acetaminophen 10/325mg tab PO PRN (21:59)
[2019-03-23 22:00] VITALS: BP 98/60
[2019-03-24 02:00] VITALS: BP 108/54
[2019-03-24] MEDS: HYDROcodone/acetaminophen 5mg/325mg tablet PO PRN (02:00)
[2019-03-24 06:00] VITALS: BP 106/67
--- NOTE | 2019-03-24 06:00 | NUR ---
Patient in room PCU 3014. I have received report from Adia NINO and had the opportunity to ask questions and assume patient care.
--- NOTE | 2019-03-24 06:19 | NUR ---
Problems reprioritized. Patient report given, questions answered & plan of care reviewed with MICA Hodge.
[2019-03-24] MEDS: HYDROcodone/acetaminophen 10/325mg tab PO PRN ×4 (06:32→20:42)
[2019-03-24] MEDS: ipratropium/albuterol 3ml nebule NEB SCH ×5 (07:19→23:20)
[2019-03-24] MEDS: lactose-reduced food (Ensure Enlive) - 237ml bottle PO SCH ×2 (08:00→13:00)
[2019-03-24] MEDS ORDERED: metoprolol succinate 25mg (24-HOUR) SR. Tablet PO SCH (08:00)
[2019-03-24] MEDS: K and/or MAG REPLACEMENT MC SCH (08:00)
[2019-03-24] MEDS: aspirin 81mg tablet.DR PO SCH (08:47)
[2019-03-24] MEDS: lactobacillus rhamnosus 10,000 MMU CELLS/CAPSULE PO SCH ×2 (08:48→20:41)
[2019-03-24] MEDS: folic acid/vitamin B complex w/vitamin C 0.8mg tablet PO SCH (08:48)
[2019-03-24] MEDS: pantoprazole 40mg Tablet.DR PO SCH (08:48)
[2019-03-24] MEDS: vitamin D (cholecalciferol) 1,000 unit tablet PO SCH (08:48)
[2019-03-24] MEDS: multivitamins, therapeutics tablet PO SCH (08:48)
[2019-03-24] MEDS: gabapentin 100mg capsule PO SCH ×3 (08:49→20:42)
[2019-03-24] MEDS: metoprolol succinate 25mg (24-HOUR) SR. Tablet PO SCH (08:50)
[2019-03-24] MEDS: docusate sod 100mg capsule PO SCH ×2 (08:50→20:00)
[2019-03-24] MEDS: buPROPion 75mg tablet PO SCH (08:51)
[2019-03-24] MEDS: LIPASE/PROTEASE/AMYLASE 4,200 unit CAPSULE.DR PO SCH ×3 (08:52→21:00)
[2019-03-24 11:00] VITALS: BP 121/79
--- NOTE | 2019-03-24 14:06 | NUR ---
Problems reprioritized. Patient report given, questions answered & plan of care reviewed with Christina NINO.
--- NOTE | 2019-03-24 14:19 | NUR ---
Patient in room PCU 3014. I have received report from MICA Azevedo and had the opportunity to ask questions and assume patient care.
[2019-03-24 15:00] VITALS: BP 110/65
[2019-03-24 18:00] VITALS: BP 111/59
--- NOTE | 2019-03-24 18:00 | NUR ---
Problems reprioritized. Patient report given, questions answered & plan of care reviewed with MICA Kapoor .
--- NOTE | 2019-03-24 18:05 | NUR ---
Patient in room PCU 3014B. I have received report from MICA Vasquez and had the opportunity to ask questions and assume patient care. Pt is awake, A&O X4, denies CP, dizziness, n/v. Will continue to monitor
[2019-03-24] MEDS: sertraline 50mg tablet PO SCH (20:41)
[2019-03-24] MEDS: polyethylene glycol 3350 17gm powd pack PO SCH (21:00)
--- NOTE | 2019-03-24 21:00 | NUR ---
Offered Colace and Miralax to patient. Patient refused. Pt states that she had a bowel movement yesterday and today and is "soft and loose." Per X-Ray of abdomen, dated 03/22/19, a moderate to large stool is seen in the distal transverse colon, decending colon, and portions of the sigmoid colon. Bowel gas pattern is not obstructed. Informed day RN and she will try again today.
[2019-03-24 22:00] VITALS: BP 112/66
[2019-03-25] MEDS: HYDROcodone/acetaminophen 10/325mg tab PO PRN ×5 (01:27→20:52)
[2019-03-25 02:00] VITALS: BP 116/81
[2019-03-25 06:00] VITALS: BP 105/63
--- NOTE | 2019-03-25 06:05 | NUR ---
Problems reprioritized. Patient report given, questions answered & plan of care reviewed with MICA Heredia. Patient stable at shift change
--- NOTE | 2019-03-25 06:22 | NUR ---
Patient in room PCU 3014. I have received report from MICA Kapoor and had the opportunity to ask questions and assume patient care.
[2019-03-25] MEDS: ipratropium/albuterol 3ml nebule NEB SCH ×5 (07:15→23:59)
[2019-03-25] MEDS: K and/or MAG REPLACEMENT MC SCH (08:00)
[2019-03-25] MEDS: lactose-reduced food (Ensure Enlive) - 237ml bottle PO SCH ×3 (08:00→18:00)
[2019-03-25] MEDS: docusate sod 100mg capsule PO SCH ×2 (08:05→20:52)
[2019-03-25] MEDS: lactobacillus rhamnosus 10,000 MMU CELLS/CAPSULE PO SCH ×2 (08:06→20:51)
[2019-03-25] MEDS: vitamin D (cholecalciferol) 1,000 unit tablet PO SCH (08:06)
[2019-03-25] MEDS: aspirin 81mg tablet.DR PO SCH (08:06)
[2019-03-25] MEDS: metoprolol succinate 25mg (24-HOUR) SR. Tablet PO SCH (08:06)
[2019-03-25] MEDS: multivitamins, therapeutics tablet PO SCH (08:07)
[2019-03-25] MEDS: pantoprazole 40mg Tablet.DR PO SCH (08:07)
[2019-03-25] MEDS: buPROPion 75mg tablet PO SCH (08:07)
[2019-03-25] MEDS: gabapentin 100mg capsule PO SCH ×3 (08:07→20:51)
[2019-03-25] MEDS: folic acid/vitamin B complex w/vitamin C 0.8mg tablet PO SCH (08:07)
[2019-03-25] MEDS: LIPASE/PROTEASE/AMYLASE 4,200 unit CAPSULE.DR PO SCH ×3 (09:20→18:52)
[2019-03-25 11:00] VITALS: BP 101/78
[2019-03-25 18:00] VITALS: BP 101/68
--- NOTE | 2019-03-25 18:45 | NUR ---
Patient in room PCU 3016E I have received report from MICA Vasquez and had the opportunity to ask questions and assume patient care. Pt is A&O X4 and feeling a little nauseated. Denies, CP, dizziness, headache, and rated pain 2/10. Administered Zofran 2ml. Will continue to monitor.
--- NOTE | 2019-03-25 19:00 | NUR ---
Problems reprioritized. Patient report given, questions answered & plan of care reviewed with MICA Heredia .
[2019-03-25] MEDS: sertraline 50mg tablet PO SCH (20:52)
[2019-03-25] MEDS: polyethylene glycol 3350 17gm powd pack PO SCH (20:52)
[2019-03-25 22:00] VITALS: BP 104/57
[2019-03-26] VITALS (7 sets, daily range): BP systolic 100–112; BP diastolic 50–73
[2019-03-26] MEDS: HYDROcodone/acetaminophen 5mg/325mg tablet PO PRN (01:22)
--- NOTE | 2019-03-26 06:15 | NUR ---
Problems reprioritized. Patient report given, questions answered & plan of care reviewed with RN. jn Bonilla Addendum: 03/26/19 at 0637 by Antwon Blair RN Patient stable at discharge
--- NOTE | 2019-03-26 06:45 | NUR ---
Patient in room PCU 3014. I have received report from Antwon NINO and had the opportunity to ask questions and assume patient care.
[2019-03-26] MEDS: ipratropium/albuterol 3ml nebule NEB SCH ×5 (07:04→23:43)
[2019-03-26] MEDS: K and/or MAG REPLACEMENT MC SCH (07:45)
[2019-03-26] MEDS: lactose-reduced food (Ensure Enlive) - 237ml bottle PO SCH ×3 (08:54→17:37)
[2019-03-26] MEDS: gabapentin 100mg capsule PO SCH ×3 (09:05→20:12)
[2019-03-26] MEDS: docusate sod 100mg capsule PO SCH ×2 (09:05→20:12)
[2019-03-26] MEDS: folic acid/vitamin B complex w/vitamin C 0.8mg tablet PO SCH (09:05)
[2019-03-26] MEDS: LIPASE/PROTEASE/AMYLASE 4,200 unit CAPSULE.DR PO SCH ×3 (09:05→17:26)
[2019-03-26] MEDS: lactobacillus rhamnosus 10,000 MMU CELLS/CAPSULE PO SCH ×2 (09:06→20:12)
[2019-03-26] MEDS: multivitamins, therapeutics tablet PO SCH (09:06)
[2019-03-26] MEDS: vitamin D (cholecalciferol) 1,000 unit tablet PO SCH (09:06)
[2019-03-26] MEDS: pantoprazole 40mg Tablet.DR PO SCH (09:06)
[2019-03-26] MEDS: aspirin 81mg tablet.DR PO SCH (09:06)
[2019-03-26] MEDS: buPROPion 75mg tablet PO SCH (09:07)
[2019-03-26] MEDS: metoprolol succinate 25mg (24-HOUR) SR. Tablet PO SCH (09:10)
[2019-03-26] MEDS: HYDROcodone/acetaminophen 10/325mg tab PO PRN ×3 (09:16→21:59)
--- NOTE | 2019-03-26 18:03 | NUR ---
Problems reprioritized. Patient report given, questions answered & plan of care reviewed with Debbie NINO.
--- NOTE | 2019-03-26 18:15 | NUR ---
Patient in room PCU 3014. I have received report from MICA Bonilla and had the opportunity to ask questions and assume patient care.
[2019-03-26] MEDS: sertraline 50mg tablet PO SCH (20:12)
[2019-03-26] MEDS: polyethylene glycol 3350 17gm powd pack PO SCH (20:12)
[2019-03-27 02:00] VITALS: BP 109/68
[2019-03-27] MEDS: HYDROcodone/acetaminophen 10/325mg tab PO PRN ×4 (02:22→21:12)
[2019-03-27 06:00] VITALS: BP 109/62
--- NOTE | 2019-03-27 06:16 | NUR ---
Problems reprioritized. Patient report given, questions answered & plan of care reviewed with MICA Vasquez.
--- NOTE | 2019-03-27 06:19 | NUR ---
Patient in room U 3014. I have received report from MICA Mann and had the opportunity to ask questions and assume patient care. Addendum: 03/27/19 at 0620 by Anju Diaz RN recieved report from MICA Kapoor
[2019-03-27] MEDS: ipratropium/albuterol 3ml nebule NEB SCH ×5 (07:06→23:00)
[2019-03-27] MEDS: lactose-reduced food (Ensure Enlive) - 237ml bottle PO SCH ×3 (08:00→19:26)
[2019-03-27] MEDS: LIPASE/PROTEASE/AMYLASE 4,200 unit CAPSULE.DR PO SCH ×3 (08:00→19:22)
[2019-03-27] MEDS: K and/or MAG REPLACEMENT MC SCH (08:00)
[2019-03-27] MEDS: lactobacillus rhamnosus 10,000 MMU CELLS/CAPSULE PO SCH ×2 (08:45→21:07)
[2019-03-27] MEDS: folic acid/vitamin B complex w/vitamin C 0.8mg tablet PO SCH (08:45)
[2019-03-27] MEDS: multivitamins, therapeutics tablet PO SCH (08:45)
[2019-03-27] MEDS: metoprolol succinate 25mg (24-HOUR) SR. Tablet PO SCH (08:46)
[2019-03-27] MEDS: docusate sod 100mg capsule PO SCH ×2 (08:46→21:07)
[2019-03-27] MEDS: gabapentin 100mg capsule PO SCH ×3 (08:46→21:07)
[2019-03-27] MEDS: vitamin D (cholecalciferol) 1,000 unit tablet PO SCH (08:46)
[2019-03-27] MEDS: pantoprazole 40mg Tablet.DR PO SCH (08:46)
[2019-03-27] MEDS: aspirin 81mg tablet.DR PO SCH (08:46)
[2019-03-27] MEDS: buPROPion 75mg tablet PO SCH (08:46)
--- NOTE | 2019-03-27 18:20 | NUR ---
Problems reprioritized. Patient report given, questions answered & plan of care reviewed with Su RN .
[2019-03-27 19:00] VITALS: BP 121/73
[2019-03-27] MEDS: sertraline 50mg tablet PO SCH (21:07)
[2019-03-27] MEDS: polyethylene glycol 3350 17gm powd pack PO SCH (21:07)
[2019-03-27 23:00] VITALS: BP 113/72
[2019-03-28] MEDS: HYDROcodone/acetaminophen 10/325mg tab PO PRN ×5 (02:21→22:30)
[2019-03-28 03:00] VITALS: BP 112/73
[2019-03-28 06:00] VITALS: BP 103/88
--- NOTE | 2019-03-28 06:26 | NUR ---
Patient in room PCU 3014. I have received report from MICA FREEMAN and had the opportunity to ask questions and assume patient care.
[2019-03-28] MEDS: ipratropium/albuterol 3ml nebule NEB SCH ×5 (07:02→23:23)
[2019-03-28] MEDS: K and/or MAG REPLACEMENT MC SCH (07:03)
[2019-03-28] MEDS: lactose-reduced food (Ensure Enlive) - 237ml bottle PO SCH ×3 (07:57→19:15)
[2019-03-28] MEDS: docusate sod 100mg capsule PO SCH ×2 (08:00→20:40)
[2019-03-28] MEDS: aspirin 81mg tablet.DR PO SCH (08:01)
[2019-03-28] MEDS: lactobacillus rhamnosus 10,000 MMU CELLS/CAPSULE PO SCH ×2 (08:01→20:39)
[2019-03-28] MEDS: folic acid/vitamin B complex w/vitamin C 0.8mg tablet PO SCH (08:02)
[2019-03-28] MEDS: LIPASE/PROTEASE/AMYLASE 4,200 unit CAPSULE.DR PO SCH ×3 (08:03→17:44)
[2019-03-28] MEDS: gabapentin 100mg capsule PO SCH ×3 (08:03→20:40)
[2019-03-28] MEDS: multivitamins, therapeutics tablet PO SCH (08:04)
[2019-03-28] MEDS: pantoprazole 40mg Tablet.DR PO SCH (08:04)
[2019-03-28] MEDS: vitamin D (cholecalciferol) 1,000 unit tablet PO SCH (08:05)
[2019-03-28] MEDS: metoprolol succinate 25mg (24-HOUR) SR. Tablet PO SCH (08:05)
[2019-03-28] MEDS: buPROPion 75mg tablet PO SCH (08:06)
[2019-03-28 11:00] VITALS: BP 105/64
--- NOTE | 2019-03-28 12:52 | NUR ---
PAGER ID: [phone] MESSAGE: DR. BASURTO, [id number], PIV OUTDATED TODAY. SHE HAS NO TELE, ONLY IV MED IS ZOFRAN, LAST DOSE 2 DAYS AGO.SHE WOULD PREFER NOT TO HAVE A NEW IV START. CAN THIS PT BE WITHOUT A PIV? JEANINE [id number]. TY
[2019-03-28 15:00] VITALS: BP 105/70
--- NOTE | 2019-03-28 15:24 | NUR ---
PAGER ID: [phone] MESSAGE: DR. BASURTO, [id number]/[id number], SHE HAS THE K/MG REPLACEMENT ON EMAR. THE ACTUAL ORDERS TO REPLACE HAVE ENDED. LAST LAB ON 03-19-19. DO WE WANT TO DC THAT K/MG ORDER, OR DO WE WANT TO GET A K/MG LEVEL NOW AND ORDER THE REPLACEMENT?JEANINE [id number].
--- NOTE | 2019-03-28 18:30 | NUR ---
Patient in room PCU 3014. I have received report from Raudel RN and Student Nurse and had the opportunity to ask questions and assume patient care with Lizeth NINO.
--- NOTE | 2019-03-28 18:30 | NUR ---
Patient in room PCU 3014. I have received report from Raudel NINO and had the opportunity to ask questions and assume patient care.
--- NOTE | 2019-03-28 18:39 | NUR ---
Problems reprioritized. Patient report given, questions answered & plan of care reviewed with santhosh caldwell.
[2019-03-28 18:42] VITALS: BP 113/71
[2019-03-28] MEDS: sertraline 50mg tablet PO SCH (20:39)
[2019-03-28] MEDS: polyethylene glycol 3350 17gm powd pack PO SCH (20:40)
[2019-03-28 23:00] VITALS: BP 106/64
[2019-03-29 03:00] VITALS: BP 107/62
[2019-03-29 06:00] VITALS: BP 99/59
--- NOTE | 2019-03-29 06:30 | NUR ---
Patient in room PCU 3014. I have received report from MICA HUNTER and had the opportunity to ask questions and assume patient care.
--- NOTE | 2019-03-29 06:31 | NUR ---
Problems reprioritized. Patient report given, questions answered & plan of care reviewed with Rebecca AND RODY RNS.
--- NOTE | 2019-03-29 06:31 | NUR ---
PT RESTED THROUGH THE NIGHT. PAIN MEDS GIVEN PRN. UP TO BSC PRN
--- NOTE | 2019-03-29 06:32 | NUR ---
oRIENTEE documentation: I have reviewed and agree with all interventions, MEDS GIVEN, assessments performed and documented by SONA NINO.
[2019-03-29] MEDS: lactobacillus rhamnosus 10,000 MMU CELLS/CAPSULE PO SCH ×2 (07:14→21:11)
[2019-03-29] MEDS: docusate sod 100mg capsule PO SCH ×2 (07:14→21:12)
[2019-03-29] MEDS: aspirin 81mg tablet.DR PO SCH (07:14)
[2019-03-29] MEDS: pantoprazole 40mg Tablet.DR PO SCH (07:15)
[2019-03-29] MEDS: gabapentin 100mg capsule PO SCH ×3 (07:15→21:11)
[2019-03-29] MEDS: folic acid/vitamin B complex w/vitamin C 0.8mg tablet PO SCH (07:15)
[2019-03-29] MEDS: multivitamins, therapeutics tablet PO SCH (07:15)
[2019-03-29] MEDS: buPROPion 75mg tablet PO SCH ×2 (07:16→07:53)
[2019-03-29] MEDS: HYDROcodone/acetaminophen 10/325mg tab PO PRN ×4 (07:17→21:12)
[2019-03-29] MEDS: LIPASE/PROTEASE/AMYLASE 4,200 unit CAPSULE.DR PO SCH ×3 (07:21→18:55)
[2019-03-29] MEDS: vitamin D (cholecalciferol) 1,000 unit tablet PO SCH (07:25)
[2019-03-29] MEDS: metoprolol succinate 25mg (24-HOUR) SR. Tablet PO SCH (07:25)
[2019-03-29] MEDS: lactose-reduced food (Ensure Enlive) - 237ml bottle PO SCH ×3 (07:51→18:00)
[2019-03-29] MEDS: ipratropium/albuterol 3ml nebule NEB SCH ×5 (08:04→23:06)
[2019-03-29] MEDS: K and/or MAG REPLACEMENT MC SCH (08:05)
--- NOTE | 2019-03-29 08:08 | NUR ---
came to give treatment at 730 and pt. wanted to finish eating breakfeast. came back at 0750 and pt on commode. madisyn noted on exertion from moving from commode to bed. spo2 85%. Addendum: 03/29/19 at 0809 by Melo [address]ham RT Amended: Links added.
--- NOTE | 2019-03-29 10:02 | NUR ---
Reassessment: Pt previously with 100% PO intake of Ensure Enlive TID however with 0% 03/27-, pending documentation of ONS PO intake for today. Pt continues meeting nutrient needs with documented 75-100% PO intake. LBM 03/28. Pt continues awaiting placement. Will continue to follow. Recommend: 1. continue regular [facility] soft diet pureed veggies, regular soups per pt request; pt/RN to chop food on floors 2. send double protein 3. Sausage with all breakfasts; Pepsi and lemon [place] soda BIDLD; cottage cheese BIDLD; double soft fruit/pureed veggies TID; 2 butter and 2 salt TID 4. continue Ensure Enlive TID; cheese and fruit w/ dinner for late night snack 5. routine bowel care 6. weight per rx Addendum: 03/29/19 at [address] Amended: Links added.
[2019-03-29 11:00] VITALS: BP 113/72
[2019-03-29 15:00] VITALS: BP 97/61
--- NOTE | 2019-03-29 18:29 | NUR ---
NEW HIRE tray setter: I have reviewed and agree with all interventions, assessments performed and documented by MICA PRINCE.
--- NOTE | 2019-03-29 18:29 | NUR ---
Problems reprioritized. Patient report given, questions answered & plan of care reviewed with MICA HUNTER.
--- NOTE | 2019-03-29 18:30 | NUR ---
Patient in room PCU 3014B. I have received report from Kriss NINO and Raudel NINO and had the opportunity to ask questions and assume patient care.
--- NOTE | 2019-03-29 18:31 | NUR ---
Patient in room PCU 3014. I have received report from Kriss nino and had the opportunity to ask questions and assume patient care WITH SONA NINO
[2019-03-29 19:00] VITALS: BP_SYST 115; BP_SYST 122; BP_DIAS 72; BP_DIAS 74
[2019-03-29] MEDS: polyethylene glycol 3350 17gm powd pack PO SCH (21:10)
[2019-03-29] MEDS: sertraline 50mg tablet PO SCH (21:12)
[2019-03-29 23:00] VITALS: BP 114/65
[2019-03-30] MEDS: HYDROcodone/acetaminophen 10/325mg tab PO PRN ×6 (02:32→20:45)
[2019-03-30 03:00] VITALS: BP 116/67
--- NOTE | 2019-03-30 06:03 | NUR ---
Problems reprioritized. Patient report given, questions answered & plan of care reviewed with Lynette and Kriss Rns.
--- NOTE | 2019-03-30 06:04 | NUR ---
orientee documentation: I have reviewed and agree with all interventions, meds given, assessments performed and documented by Lizeth NINO.
--- NOTE | 2019-03-30 06:07 | NUR ---
Patient in room PCU 3014. I have received report from MICA Barbosa and had the opportunity to ask questions and assume patient care.
--- NOTE | 2019-03-30 06:09 | NUR ---
Patient in room PCU 3014. I have received report from MICA Barbosa and had the opportunity to ask questions and assume patient care.
--- NOTE | 2019-03-30 06:11 | NUR ---
Problems reprioritized. Patient report given, questions answered & plan of care reviewed with Lynette NINO and Kriss NINO.
[2019-03-30 06:49] VITALS: BP 105/66
[2019-03-30] MEDS: ipratropium/albuterol 3ml nebule NEB SCH ×5 (07:15→23:09)
[2019-03-30] MEDS: vitamin D (cholecalciferol) 1,000 unit tablet PO SCH (07:36)
[2019-03-30] MEDS: aspirin 81mg tablet.DR PO SCH (07:36)
[2019-03-30] MEDS: multivitamins, therapeutics tablet PO SCH (07:36)
[2019-03-30] MEDS: LIPASE/PROTEASE/AMYLASE 4,200 unit CAPSULE.DR PO SCH ×3 (07:36→20:28)
[2019-03-30] MEDS: folic acid/vitamin B complex w/vitamin C 0.8mg tablet PO SCH (07:36)
[2019-03-30] MEDS: buPROPion 75mg tablet PO SCH (07:36)
[2019-03-30] MEDS: pantoprazole 40mg Tablet.DR PO SCH (07:36)
[2019-03-30] MEDS: metoprolol succinate 25mg (24-HOUR) SR. Tablet PO SCH (07:37)
[2019-03-30] MEDS: gabapentin 100mg capsule PO SCH ×3 (07:37→20:25)
[2019-03-30] MEDS: docusate sod 100mg capsule PO SCH ×2 (07:37→20:00)
[2019-03-30] MEDS: lactobacillus rhamnosus 10,000 MMU CELLS/CAPSULE PO SCH ×2 (07:37→20:25)
[2019-03-30] MEDS: K and/or MAG REPLACEMENT MC SCH (08:00)
[2019-03-30] MEDS: lactose-reduced food (Ensure Enlive) - 237ml bottle PO SCH ×3 (09:00→20:28)
[2019-03-30 11:00] VITALS: BP 108/68
[2019-03-30 15:00] VITALS: BP 120/79
[2019-03-30 18:00] VITALS: BP 125/62
--- NOTE | 2019-03-30 18:29 | NUR ---
Patient in room PCU 3014. I have received report from MICA Cruz and had the opportunity to ask questions and assume patient care.
--- NOTE | 2019-03-30 18:33 | NUR ---
Problems reprioritized. Patient report given, questions answered & plan of care reviewed with MICA Cheek.
--- NOTE | 2019-03-30 18:35 | NUR ---
Orientee documentation: I have reviewed and agree with all interventions, assessments performed and documented by MICA Cruz.
[2019-03-30] MEDS: polyethylene glycol 3350 17gm powd pack PO SCH (20:21)
[2019-03-30] MEDS: sertraline 50mg tablet PO SCH (20:25)
[2019-03-30 22:00] VITALS: BP 109/68
[2019-03-31 02:00] VITALS: BP 121/74
[2019-03-31] MEDS: HYDROcodone/acetaminophen 10/325mg tab PO PRN ×5 (03:01→20:21)
[2019-03-31 06:00] VITALS: BP 113/70
--- NOTE | 2019-03-31 06:13 | NUR ---
Problems reprioritized. Patient report given, questions answered & plan of care reviewed with MICA Vasquez.
--- NOTE | 2019-03-31 06:50 | NUR ---
Patient in room PCU 3014. I have received report from MICA Cheek and had the opportunity to ask questions and assume patient care.
[2019-03-31] MEDS: ipratropium/albuterol 3ml nebule NEB SCH ×5 (06:59→23:00)
[2019-03-31] MEDS: K and/or MAG REPLACEMENT MC SCH (08:00)
[2019-03-31] MEDS: lactose-reduced food (Ensure Enlive) - 237ml bottle PO SCH ×3 (08:00→18:37)
[2019-03-31] MEDS: gabapentin 100mg capsule PO SCH ×3 (08:41→20:20)
[2019-03-31] MEDS: multivitamins, therapeutics tablet PO SCH (08:41)
[2019-03-31] MEDS: vitamin D (cholecalciferol) 1,000 unit tablet PO SCH (08:41)
[2019-03-31] MEDS: docusate sod 100mg capsule PO SCH ×2 (08:41→20:20)
[2019-03-31] MEDS: lactobacillus rhamnosus 10,000 MMU CELLS/CAPSULE PO SCH ×2 (08:41→20:22)
[2019-03-31] MEDS: folic acid/vitamin B complex w/vitamin C 0.8mg tablet PO SCH (08:41)
[2019-03-31] MEDS: pantoprazole 40mg Tablet.DR PO SCH (08:41)
[2019-03-31] MEDS: metoprolol succinate 25mg (24-HOUR) SR. Tablet PO SCH (08:42)
[2019-03-31] MEDS: aspirin 81mg tablet.DR PO SCH (08:42)
[2019-03-31] MEDS: buPROPion 75mg tablet PO SCH (08:42)
[2019-03-31] MEDS: LIPASE/PROTEASE/AMYLASE 4,200 unit CAPSULE.DR PO SCH ×3 (08:58→18:37)
[2019-03-31 11:00] VITALS: BP 107/64
--- NOTE | 2019-03-31 11:22 | NUR ---
pt is pleasant and cooperative, she has good insight and no s/s of ineffective coping skills.
--- NOTE | 2019-03-31 11:51 | NUR ---
I have reviewed and agree with all medications administered and interventions performed by [facility] Student Ivan Nguyen Addendum: 03/31/19 at 1152 by Socorro Clark RT Amended: Links added.
[2019-03-31 18:00] VITALS: BP 103/65
--- NOTE | 2019-03-31 18:36 | NUR ---
Problems reprioritized. Patient report given, questions answered & plan of care reviewed with MICA Parada.
[2019-03-31] MEDS: sertraline 50mg tablet PO SCH (20:20)
[2019-03-31] MEDS: polyethylene glycol 3350 17gm powd pack PO SCH (20:20)
--- NOTE | 2019-03-31 21:44 | NUR ---
Patient in room PCU 3014. I have received report from MICA Rene and had the opportunity to ask questions and assume patient care.
--- NOTE | 2019-03-31 21:44 | NUR ---
Problems reprioritized. Patient report given, questions answered & plan of care reviewed with MICA Archibald.
[2019-03-31 22:00] VITALS: BP 112/66
[2019-04-01] MEDS: HYDROcodone/acetaminophen 10/325mg tab PO PRN ×5 (00:19→20:31)
[2019-04-01 02:00] VITALS: BP 109/85
--- NOTE | 2019-04-01 04:31 | NUR ---
Patient is A&O x4, and was calm and cooperative throughout shift. No signs of anxiety, anger, and no issues of behavorial problems.
--- NOTE | 2019-04-01 05:59 | NUR ---
Orientee Medication Administration: For this medication-pass time frame, all medication were reviewed, dispensed, administered and documented per hospital policy by Summer NINO. Orientee documentation: I have reviewed all interventions, assessments performed and documented by Summer NINO.
--- NOTE | 2019-04-01 06:14 | NUR ---
Problems reprioritized. Patient report given, questions answered & plan of care reviewed with MICA Swanson.
--- NOTE | 2019-04-01 06:14 | NUR ---
Problems reprioritized. Patient report given, questions answered & plan of care reviewed with MICA Swanson.
[2019-04-01] MEDS: ipratropium/albuterol 3ml nebule NEB SCH ×5 (06:46→23:00)
--- NOTE | 2019-04-01 06:54 | NUR ---
Patient in room PCU 3014. I have received report from Karma NINO, and had the opportunity to ask questions and assume patient care.
[2019-04-01] MEDS: docusate sod 100mg capsule PO SCH ×2 (08:00→19:09)
[2019-04-01] MEDS: K and/or MAG REPLACEMENT MC SCH (08:00)
[2019-04-01] MEDS: gabapentin 100mg capsule PO SCH ×3 (08:55→20:28)
[2019-04-01] MEDS: multivitamins, therapeutics tablet PO SCH (08:55)
[2019-04-01] MEDS: aspirin 81mg tablet.DR PO SCH (08:55)
[2019-04-01] MEDS: metoprolol succinate 25mg (24-HOUR) SR. Tablet PO SCH (08:55)
[2019-04-01] MEDS: vitamin D (cholecalciferol) 1,000 unit tablet PO SCH (08:55)
[2019-04-01] MEDS: pantoprazole 40mg Tablet.DR PO SCH (08:55)
[2019-04-01] MEDS: buPROPion 75mg tablet PO SCH (08:55)
[2019-04-01] MEDS: folic acid/vitamin B complex w/vitamin C 0.8mg tablet PO SCH (08:55)
[2019-04-01] MEDS: lactobacillus rhamnosus 10,000 MMU CELLS/CAPSULE PO SCH ×2 (08:55→19:09)
[2019-04-01] MEDS: lactose-reduced food (Ensure Enlive) - 237ml bottle PO SCH ×4 (08:57→15:03)
[2019-04-01] MEDS: LIPASE/PROTEASE/AMYLASE 4,200 unit CAPSULE.DR PO SCH ×3 (08:59→18:49)
--- NOTE | 2019-04-01 16:53 | NUR ---
I have reviewed and agree with all medications administered and interventions performed by [facility] Student Ivan Nguyen Addendum: 04/01/19 at 1653 by Socorro Clark RT Amended: Links added.
[2019-04-01 18:00] VITALS: BP 97/61
--- NOTE | 2019-04-01 18:00 | NUR ---
Pt. had good day. NO issues. Cooperative, Calm, and needs pain medication occasionally for generalized body aches and pains, headache and chronic back pain
--- NOTE | 2019-04-01 18:15 | NUR ---
Received report from MICA Swanson and assumed plan of care.
[2019-04-01] MEDS: hydrOXYzine 25 MG tablet PO PRN (19:09)
[2019-04-01] MEDS: polyethylene glycol 3350 17gm powd pack PO SCH (20:27)
[2019-04-01] MEDS: sertraline 50mg tablet PO SCH (20:28)
[2019-04-01 22:00] VITALS: BP 99/69
--- NOTE | 2019-04-01 23:00 | NUR ---
Patient presents as pleasant and very cooperative with care.
[2019-04-02 02:00] VITALS: BP 110/70
[2019-04-02] MEDS: HYDROcodone/acetaminophen 10/325mg tab PO PRN ×5 (02:22→20:57)
--- NOTE | 2019-04-02 04:23 | NUR ---
Student documentation: I have reviewed and agree with all interventions, assessments performed and documented by Jaimie LENZ. Student Medication Administration: For this medication-pass time frame, all medication were reviewed, dispensed, administered and documented per hospital policy by Jaimie LENZ.
[2019-04-02 06:00] VITALS: BP 98/69
--- NOTE | 2019-04-02 06:29 | NUR ---
Problems reprioritized. Patient report given, questions answered & plan of care reviewed with Kiki Garay RN.
[2019-04-02] MEDS: ipratropium/albuterol 3ml nebule NEB SCH ×5 (07:29→23:00)
[2019-04-02] MEDS: docusate sod 100mg capsule PO SCH ×2 (08:47→19:26)
[2019-04-02] MEDS: LIPASE/PROTEASE/AMYLASE 4,200 unit CAPSULE.DR PO SCH ×3 (08:48→19:26)
[2019-04-02] MEDS: metoprolol succinate 25mg (24-HOUR) SR. Tablet PO SCH (08:48)
[2019-04-02] MEDS: aspirin 81mg tablet.DR PO SCH (08:48)
[2019-04-02] MEDS: multivitamins, therapeutics tablet PO SCH (08:48)
[2019-04-02] MEDS: gabapentin 100mg capsule PO SCH ×3 (08:48→20:57)
[2019-04-02] MEDS: pantoprazole 40mg Tablet.DR PO SCH (08:48)
[2019-04-02] MEDS: folic acid/vitamin B complex w/vitamin C 0.8mg tablet PO SCH (08:48)
[2019-04-02] MEDS: buPROPion 75mg tablet PO SCH (08:48)
[2019-04-02] MEDS: lactobacillus rhamnosus 10,000 MMU CELLS/CAPSULE PO SCH ×2 (08:48→19:26)
[2019-04-02] MEDS: vitamin D (cholecalciferol) 1,000 unit tablet PO SCH (08:49)
[2019-04-02] MEDS: K and/or MAG REPLACEMENT MC SCH (08:53)
[2019-04-02 11:00] VITALS: BP 109/69
[2019-04-02] MEDS: lactose-reduced food (Ensure Enlive) - 237ml bottle PO SCH ×2 (12:44→14:08)
--- NOTE | 2019-04-02 17:10 | NUR ---
Alert Oriented to person place time situation. Excellent interpersonal interactions pleasant and cheerful, able to entertain self and is interested in current events and television. Pt. has needed pain medications at the maximum ordered, and continues to ask for pain medications to maintain comfort. Safe transfers are maintained. GI system is regular with daily BM's, that are soft and formed. Bowel care is oral DSS. Coccyx wound care dressing is is foam and remains intact.
[2019-04-02 18:00] VITALS: BP 104/65
--- NOTE | 2019-04-02 19:13 | NUR ---
Patient in room PCU 3014. I have received report from MICA Swanson and had the opportunity to ask questions and assume patient care.
[2019-04-02] MEDS: sertraline 50mg tablet PO SCH (20:58)
[2019-04-02] MEDS: polyethylene glycol 3350 17gm powd pack PO SCH (20:58)
[2019-04-02 22:00] VITALS: BP 108/70
[2019-04-03] VITALS (7 sets, daily range): BP systolic 98–133; BP diastolic 54–80
[2019-04-03] MEDS: HYDROcodone/acetaminophen 10/325mg tab PO PRN ×5 (01:04→23:10)
--- NOTE | 2019-04-03 05:56 | NUR ---
Patient was pleasant to talk to throughout the shift and agreed with all plan of care.
--- NOTE | 2019-04-03 06:25 | NUR ---
Problems reprioritized. Patient report given, questions answered & plan of care reviewed with MICA Mtz.
--- NOTE | 2019-04-03 06:26 | NUR ---
Problems reprioritized. Patient report given, questions answered & plan of care reviewed with Smith Fernandez RN.
[2019-04-03] MEDS: ipratropium/albuterol 3ml nebule NEB SCH ×5 (06:42→23:00)
[2019-04-03] MEDS: K and/or MAG REPLACEMENT MC SCH (07:05)
[2019-04-03] MEDS: lactose-reduced food (Ensure Enlive) - 237ml bottle PO SCH ×5 (08:00→23:23)
[2019-04-03] MEDS: gabapentin 100mg capsule PO SCH ×3 (09:24→23:11)
[2019-04-03] MEDS: metoprolol succinate 25mg (24-HOUR) SR. Tablet PO SCH (09:24)
[2019-04-03] MEDS: folic acid/vitamin B complex w/vitamin C 0.8mg tablet PO SCH (09:25)
[2019-04-03] MEDS: docusate sod 100mg capsule PO SCH ×2 (09:25→23:10)
[2019-04-03] MEDS: vitamin D (cholecalciferol) 1,000 unit tablet PO SCH (09:25)
[2019-04-03] MEDS: multivitamins, therapeutics tablet PO SCH (09:25)
[2019-04-03] MEDS: pantoprazole 40mg Tablet.DR PO SCH (09:25)
[2019-04-03] MEDS: buPROPion 75mg tablet PO SCH (09:25)
[2019-04-03] MEDS: LIPASE/PROTEASE/AMYLASE 4,200 unit CAPSULE.DR PO SCH ×3 (09:25→17:52)
[2019-04-03] MEDS: lactobacillus rhamnosus 10,000 MMU CELLS/CAPSULE PO SCH ×2 (09:25→23:10)
[2019-04-03] MEDS: aspirin 81mg tablet.DR PO SCH (09:25)
--- NOTE | 2019-04-03 15:22 | NUR ---
Patient has been complaint with all medications and patient care. Agreeable to ambulating when needed.
--- NOTE | 2019-04-03 19:05 | NUR ---
Problems reprioritized. Patient report given, questions answered & plan of care reviewed with MICA Heredia.
[2019-04-03] MEDS: polyethylene glycol 3350 17gm powd pack PO SCH (23:10)
[2019-04-03] MEDS: sertraline 50mg tablet PO SCH (23:11)
[2019-04-04] MEDS: HYDROcodone/acetaminophen 10/325mg tab PO PRN ×2 (00:24→08:19)
[2019-04-04 03:00] VITALS: BP 106/68
--- NOTE | 2019-04-04 06:18 | NUR ---
Patient in room PCU 3014. I have received report from Yan NINO and had the opportunity to ask questions and assume patient care. Patient resting comfortably in bed. Did not wake for bedside report. No signs/symptoms of distress at this time.
--- NOTE | 2019-04-04 06:33 | NUR ---
Patient in room PCU 3014. I have received report from Yan and had the opportunity to ask questions and assume patient care.
[2019-04-04 07:00] VITALS: BP 113/63
[2019-04-04] MEDS: ipratropium/albuterol 3ml nebule NEB SCH (07:29)
[2019-04-04] MEDS: K and/or MAG REPLACEMENT MC SCH (08:00)
[2019-04-04] MEDS: lactobacillus rhamnosus 10,000 MMU CELLS/CAPSULE PO SCH (08:18)
[2019-04-04] MEDS: metoprolol succinate 25mg (24-HOUR) SR. Tablet PO SCH (08:18)
[2019-04-04] MEDS: pantoprazole 40mg Tablet.DR PO SCH (08:19)
[2019-04-04] MEDS: docusate sod 100mg capsule PO SCH (08:19)
[2019-04-04] MEDS: buPROPion 75mg tablet PO SCH (08:20)
[2019-04-04] MEDS: gabapentin 100mg capsule PO SCH (08:20)
[2019-04-04] MEDS: LIPASE/PROTEASE/AMYLASE 4,200 unit CAPSULE.DR PO SCH (08:20)
[2019-04-04] MEDS: aspirin 81mg tablet.DR PO SCH (08:21)
[2019-04-04] MEDS: folic acid/vitamin B complex w/vitamin C 0.8mg tablet PO SCH (08:21)
--- NOTE | 2019-04-04 08:21 | NUR ---
Dr Gilmore signed TMS and SNF transfer form. Paged Case Management and put signed documents in chart.
[2019-04-04] MEDS: multivitamins, therapeutics tablet PO SCH (08:22)
[2019-04-04] MEDS: vitamin D (cholecalciferol) 1,000 unit tablet PO SCH (08:23)
--- NOTE | 2019-04-04 08:46 | NUR ---
Obtained 21 day discharge MRSA screen.
--- NOTE | 2019-04-04 10:21 | NUR ---
EVS was called for the patient's belongings. Wilson brought up one small bag, however the patient states that she had a vape "module" that she wanted to charge. She also states she's missing her insurance cards and other irreplaceable items..
--- NOTE | 2019-04-04 10:23 | NUR ---
Security was called to see if patient's belongings are in the safe. There is no form showing that items were taken to the safe in the chart. Trying to find the patient's belongings before she transfers out. Addendum: 04/04/19 at 1028 by Hazel Stallworth RN Per admitting, patient has nothing in the safe.
--- NOTE | 2019-04-04 11:27 | NUR ---
Patient was taken via wheelchair [place] by [place] screw driver operator. Oxygen was delivered for the trip. Gave patient crackers and juice for the ride, as the sack lunch was not delivered on time.
--- NOTE | 2019-04-04 11:30 | NUR ---
Report called to Vero at [facility] in [facility]. All questions answered. Patient left in stable condition.
== END 2019-04-04 11:00 | DRG 133 ==
LOC: ER 11:20 → PCU 3S 21:28 → CMPBEDREQ 21:30 → PCU 3S 03-03 05:34
PROVIDERS: ADMIT Hospitalist; ATTEND Family Medicine
PROC: 5A09357 Assistance with Respiratory Ventilation, Less than 24 Consecutive Hours, Continuous Positive Airway Pressure (ICD-10-PCS; principal; 2019-03-02)
DX: J96.21 Acute and chronic respiratory failure with hypoxia (principal); G93.41 Metabolic encephalopathy; E43 Unspecified severe protein-calorie malnutrition; E87.2 Acidosis; E87.0 Hyperosmolality and hypernatremia; E83.42 Hypomagnesemia; B85.1 Pediculosis due to Pediculus humanus corporis; J96.22 Acute and chronic respiratory failure with hypercapnia; E87.5 Hyperkalemia; F03.90 Unspecified dementia, unspecified severity, without behavioral disturbance, psychotic disturbance, mood disturbance, and anxiety; J43.9 Emphysema, unspecified; F32.9 Major depressive disorder, single episode, unspecified; G89.4 Chronic pain syndrome; K59.00 Constipation, unspecified; M06.9 Rheumatoid arthritis, unspecified; R62.7 Adult failure to thrive; D64.9 Anemia, unspecified; F12.90 Cannabis use, unspecified, uncomplicated; M10.9 Gout, unspecified; M19.90 Unspecified osteoarthritis, unspecified site; M54.9 Dorsalgia, unspecified; Z88.8 Allergy status to other drugs, medicaments and biological substances; Z79.82 Long term (current) use of aspirin; Z79.899 Other long term (current) drug therapy; Z68.1 Body mass index [BMI] 19.9 or less, adult; Z98.891 History of uterine scar from previous surgery; Z56.0 Unemployment, unspecified
CPT/HCPCS: 36415; 36600; 71045; 74018; 80048; 80053; 80305; 81001; 81025; 82803; 82948; 83735; 84100; 84132; 84484; 85018; 85025; 85610; 87077; 87081; 87088; 87186; 94640; 94660; 94667; 94760; 96365; 97110; 97116; 97161; 97530; 99285; G0378; J0456; J1650; J2270; J2405; J2920; J2930; J3475; J3480; J7030; J7512; Z7610